=== PATIENT | female | born 1950 | race Caucasian/White ===

== ENCOUNTER → 2016-12-04 | Outpatient (CLI) | payer BC ==
[2016-12-04 20:12] LABS: Hemoglobin A1C 9.6 % (4.2-6.1)
== END | disposition home or self-care (01) ==
LOC: LABWHC1 11:10
PROVIDERS: ATTEND Psychiatry & Neurology Psychiatry
DX: E78.5 Hyperlipidemia, unspecified (principal); E03.9 Hypothyroidism, unspecified
CPT/HCPCS: 36415; 80061; 83036; 84439; 84443

== ENCOUNTER 2021-07-04 18:13 | Inpatient (IN) | payer MEDICARE ==
[2021-07-04 20:41] LABS: Basophils # (A) 0.1 k/uL (0-0.2); Basophils % (A) 1 %; Eosinophils # (A) 0.4 k/uL (0-0.7); Eosinophils % (A) 3 %; HCT 48.5 % (34.0-46.0); HGB 15.6 gm/dL (11.4-16.0); Lymphocytes # (A) 1.7 k/uL (1.0-4.8); Lymphocytes % (A) 13 %; MCHC 32.2 g/dL (31.0-37.0); Mean Platelet Volume 7.5; Monocytes # (A) 0.7 k/uL (0-1.0); Monocytes % (A) 6 %; Neutrophils # (A) 9.6 k/uL (1.3-7.7); Neutrophils % (A) 76 %; Platelet Count 334 k/uL (150-450); RBC 5.38 m/uL (3.80-5.40); RDW 14.8 % (11.5-15.5); WBC 12.6 k/uL (3.8-10.6)
[2021-07-04 20:54] LABS: Albumin 4.7 g/dL (3.5-5.0); Calcium 10.3 mg/dL (8.4-10.2); Potassium 4.1 mmol/L (3.5-5.1); Total Bilirubin 1.2 mg/dL (0.2-1.3)
--- NOTE | 2021-07-04 21:12 | XR ---
EXAMINATION TYPE: XR chest 2V DATE OF EXAM: 07/04/2021 8:48 PM COMPARISON:CT chest from same date 06/12/2021 TECHNIQUE: Frontal and lateral views of the chest. CLINICAL INDICATION:Female, 70 years old with history of difficulty breathing; FINDINGS: Lungs/Pleura: There is no evidence of pleural effusion, focal consolidation, or pneumothorax. Streak y atelectasis within the right midlung Pulmonary vascularity: Unremarkable. Heart/mediastinum: Cardiomediastinal silhouette is unremarkable. Musculoskeletal: No acute osseous pathology. IMPRESSION: No acute cardiopulmonary disease/process.
[2021-07-04 21:15] LABS: INR 0.9 (<1.2); Partial Thromboplastin Time 21.4 sec (22.0-30.0); Prothrombin Time 10.2 sec (9.0-12.0)
[2021-07-04] MEDS ORDERED: FAMOTIDINE 20 MG/2 ML VIAL IV STA (21:35)
[2021-07-04] MEDS ORDERED: METOCLOPRAMIDE 5 MG/ML 2 ML VIAL IVP STA (21:35)
[2021-07-04] MEDS ORDERED: SODIUM CHLORIDE 0.9% 1,000 ML IV STA ×2 (21:35→21:52)
[2021-07-04] MEDS ORDERED: diphenhydrAMINE 50 MG/ML 1 ML VIAL IVP STA (21:35)
--- NOTE | 2021-07-04 22:18 | CT ---
EXAMINATION TYPE: CT chest angio for PE CT DLP: 330.2 mGycm, Automated exposure control for dose reduction was used. DATE OF EXAM: 07/04/2021 10:04 PM COMPARISON: Chest radiograph from same day. CLINICAL INDICATION:Female, 70 years old with history of elevated d-dimer, concern for PE; chest pain TECHNIQUE/CONTRAST: CTA scan of the thorax is performed with IV Contrast, patient injected with 73cc mL of Isovue 370, pu lmonary embolism protocol. MIP images are created and reviewed. FINDINGS: Pulmonary Artery: Filling defect within the right main pulmonary artery with extension into the right lower lobe pulmonary arterial vasculature. Additional right upper lobe and left lower lobe pulmonary emboli are present. No evidence of right heart strain. The pulmonary artery is of normal size. Lungs/Pleura: No evidence of pneumothorax. Lower lobe collimation changes with central lucency remain s present appears smaller than 06/12/2021. There is small left pleural effusion. Groundglass opacity w ithin the left lung base is new from prior exam. Airway: Large airways are patent. Heart: Within normal limits for size. Vasculature: No evidence of aortic aneurysm. Mediastinum: No gross evidence of adenopathy. Musculoskeletal: No acute osseous abnormalities, multiple old left-sided rib fractures are present. Soft Tissues: Unremarkable. Lower neck: No significant findings. Upper Abdomen: Cholelithiasis within the gallbladder neck. Findings communicated to Dr. Robbin Friedman MD on 07/04/2021 10:[address] Lew Osborne. IMPRESSION: 1. Bilateral pulmonary emboli without evidence of right heart strain. 2. Right lower lobe consolidation with central lucency remains present and appears smaller compared t o 06/12/2021. Differential includes infectious/inflammatory etiologies with neoplastic process not ent irely excluded. Consider short-term follow-up imaging to ensure resolution in 4-6 weeks. 3. Decrease in size of right pleural effusion.
[2021-07-04] MEDS ORDERED: HEPARIN SODIUM 1,000 UN/ML (10ML VL) IV PRN (22:19)
[2021-07-04] MEDS ORDERED: HEPARIN SODIUM 1,000 UN/ML (10ML VL) IV ONE (22:19)
--- NOTE | 2021-07-04 22:22 | ED ---
General Adult HPI - General Chief complaint: Shortness of Breath Stated complaint: EFFIE Time Seen by Provider: 07/04/21 20:30 Source: patient, RN notes reviewed, old records reviewed Mode of arrival: ambulatory Limitations: no limitations - History of Present Illness Initial comments: Patient is a 70-year-old female with past medical history remarkable for diabetes, hypertension, thyroid disorder presents emergency Department complaining of multiweek history of worsening weakness, shortness of breath on exertion, fatigue. Patient states this is been ongoing for multiple weeks. She had Covid back at the end of March, and was improving but noticed that over the last 2 weeks she seems to be declining. Also endorses intermittent nausea and vomiting. Has not been checking her sugars at home. Denies any diarrhea. Denies any urinary complaints. His poor by mouth intake. His no other acute complaints at this time. Denies any chest pain, abdominal pain. Has no other pain at this time. No history of blood clots. Patient was evaluated when she was placed in a room. - Related Data Home Medications Medication Instructions Recorded Confirmed FLUoxetine HCL [PROzac] 20 mg PO DAILY 03/15/16 07/04/21 Levothyroxine Sodium [Synthroid] 112 mcg PO DAILY 03/15/16 07/04/21 Lisinopril-Hctz 10-12.5 mg 1 tab PO DAILY 03/15/16 07/04/21 [Zestoretic 10-12.5] Albuterol Sulfate [Albuterol 2 puff PO RT-Q6H PRN 07/04/21 07/04/21 Sulfate Hfa] Amoxicillin/Potassium Clav 1 tab PO BID 07/04/21 07/04/21 [Augmentin 875-125 Tablet] Dapagliflozin Propanediol [Farxiga] 10 mg PO DAILY 07/04/21 07/04/21 Dulaglutide [Trulicity] 3 mg SQ TH 07/04/21 07/04/21 allopurinoL [Zyloprim] 100 mg PO DAILY 07/04/21 07/04/21 predniSONE See Taper PO DIRECTED 07/04/21 07/04/21 Allergies Allergy/AdvReac Type Severity Reaction Status Date / Time latex Allergy Rash/Hives Verified 07/04/21 23:07 Review of Systems ROS Statement: Those systems with pertinent positive or pertinent negative responses have been documented in the HPI. Review of Systems: CONST: Denies fever EYES: Denies blurry vision ENT: Denies nasal congestion C/V: Denies Chest pain RESP: Endorses shortness of breath GI: Denies abdominal pain : Denies dysuria SKIN: Denies rash. MSK: Denies joint pain. NEURO: Endorses generalized fatigue ROS Other: All systems not noted in ROS Statement are negative. Past Medical History Past Medical History: Diabetes Mellitus, GERD/Reflux, Hyperlipidemia, Hypertension, Pneumonia, Skin Disorder, Sleep Apnea/CPAP/BIPAP, Thyroid Disorder Additional Past Medical History / Comment(s): NO CPAP. ROSACEA. History of Any Multi-Drug Resistant Organisms: None Reported Past Surgical History: Section, Hysterectomy Past Anesthesia/Blood Transfusion Reactions: Motion Sickness Past Psychological History: Depression Smoking Status: Never smoker Past Alcohol Use History: None Reported Past Drug Use History: None Reported General Exam - General Exam Comments Initial Comments: General: Appears in no acute distress. HEAD: Normal with no signs of head trauma. EYES: PERRLA, EOMI, conjunctiva normal, no discharge. ENT: Hearing grossly intact, normal oropharynx. Dry mucous membranes RESPIRATORY: Clear breath sounds bilaterally. No wheezes, rales, or rhonchi. C/V: Regular rate and rhythm. S1 and S2 auscultated, no edema, peripheral pulses 2+ and intact throughout ABD: Abd is soft, nontender, nondistended EXT: Normal range of motion, no obvious deformity SKIN: No rashes or lesions observed on exposed skin. NEURO: Alert and oriented 4. No focal sensory strength deficits. NIH is 0. GCS is 15. Limitations: no limitations Course Vital Signs 07/04/21 07/04/21 07/04/21 19:33 21:06 22:20 Temperature 97.6 F Pulse Rate 80 69 76 Respiratory 80 H 18 18 Rate Blood Pressure 111/61 140/69 165/62 O2 Sat by Pulse 99 99 96 Oximetry 07/05/21 00:11 Temperature Pulse Rate 67 Respiratory 18 Rate Blood Pressure 139/48 O2 Sat by Pulse 98 Oximetry Procedures - [place] Protocol (Time Out) Nurse: Nathan Parkinson Medical Decision Making - Medical Decision Making Based on patient's presentation and physical exam, I'm concerned for possible PE versus cardiopulmonary etiology for her current symptoms. Cannot rule out infection either. We'll obtain a cardiac workup and basic labs. She'll be started on 1 L fluid bolus as well as symptomatic treatment with a GI cocktail. She was in agreement this plan. EKG showed no signs of acute ischemia. Chest x-ray showed no acute cardiopulmonary process. Laboratory studies are remarkable for a elevated d- dimer 4.77, mild leukocytosis of 12.6, hyponatremia and hypochloremia 129 and 86. Patient also has an anion gap metabolic acidosis likely secondary to DKA with a carbon dioxide of 17, gap of 26, glucose of 470, as well as positive acetones and 2+ ketones and 4+ glucose in the urine. Troponin is negative. Covid is negative. Due to patient's elevated d-dimer, I would like to obtain a CT angiogram to rule out PE. She was in agreement this plan. CT angiogram didn't reveal improvement in a right lower lobe consolidation. Patient has bilateral pul monary embolisms which appear to be subsegmental and segmental. After the patient results of her laboratory studies and imaging. Like to start her on a heparin drip for her pulmonary embolism. Pulmonology as well as vascular surgery will be consulted. She was in agreement this plan. Echo was ordered. Cardiology was also consulted. Due to the patient's DKA, DKA protocol was started. She was placed on an insulin drip. She received a total of 2 fluid boluses here in the department as well is started on an insulin drip and maintenance fluids. She was in agreement this plan. I spoke with the admitting physician, Dr. Resendez was in agreement this plan. I also spoke with the order tracer on-call was consulted, Dr. Smith who was in agreement with this plan. He requested the vascular surgery consult which was placed. Patient will be admitted to the ICU pending availability of the bed. Patient was in agreement this plan. Patient was therefore admitted and serous condition. Echo is pending. Vital signs remained within normal limits and stable throughout her stay in the department. I frequently reevaluated the patient throughout her stay in the department. - Lab Data Result diagrams: 07/04/21 20:17 07/04/21 20:17 Lab Results 07/04/21 07/04/21 07/04/21 Range/Units 20:17 20:17 20:17 WBC 12.6 H (3.8-10.6) k/uL RBC 5.38 (3.80-5.40) m/uL Hgb 15.6 (11.4-16.0) gm/dL Hct 48.5 H (34.0-46.0) % MCV 90.0 (80.0-100.0) fL MCH 29.0 (25.0-35.0) pg MCHC 32.2 (31.0-37.0) g/dL RDW 14.8 (11.5-15.5) % Plt Count 334 (150-450) k/uL MPV 7.5 Neutrophils % 76 % Lymphocytes % 13 % Monocytes % 6 % Eosinophils % 3 % Basophils % 1 % Neutrophils # 9.6 H (1.3-7.7) k/uL Lymphocytes # 1.7 (1.0-4.8) k/uL Monocytes # 0.7 (0-1.0) k/uL Eosinophils # 0.4 (0-0.7) k/uL Basophils # 0.1 (0-0.2) k/uL PT 10.2 (9.0-12.0) sec INR 0.9 (<1.2) APTT 21.4 L (22.0-30.0) sec D-Dimer 4.77 H (<0.60) mg/L FEU Sodium 129 L (137-145) mmol/L Potassium 4.1 (3.5-5.1) mmol/L Chloride 86 L (98-107) mmol/L Carbon Dioxide 17 L (22-30) mmol/L Anion Gap 26 mmol/L BUN 34 H (7-17) mg/dL Creatinine 1.04 (0.52-1.04) mg/dL Est GFR (CKD-EPI)AfAm 63 (>60 ml/min/1.73 sqM) Est GFR (CKD-EPI)NonAf 55 (>60 ml/min/1.73 sqM) Glucose 470 H (74-99) mg/dL Calcium 10.3 H (8.4-10.2) mg/dL Total Bilirubin 1.2 (0.2-1.3) mg/dL AST 23 (14-36) U/L ALT 31 (4-34) U/L Alkaline Phosphatase 123 (38-126) U/L Troponin I (0.000-0.034) ng/mL Total Protein 8.0 (6.3-8.2) g/dL Albumin 4.7 (3.5-5.0) g/dL Urine Color Urine Appearance (Clear) Urine pH (5.0-8.0) Ur Specific [place] (1.001-1.035) Urine Protein (Negative) Urine Glucose (UA) (Negative) Urine Ketones (Negative) Urine Blood (Negative) Urine Nitrite (Negative) Urine Bilirubin (Negative) Urine Urobilinogen (<2.0) mg/dL Ur Leukocyte Esterase (Negative) Urine RBC (0-5) /hpf Urine WBC (0-5) /hpf Ur Squamous Epith Cells (0-4) /hpf Urine Mucus (None) /hpf Acetone, Qual (Negative) Coronavirus (PCR) (Not Detectd) 07/04/21 07/04/21 07/04/21 Range/Units 20:17 20:37 22:20 WBC (3.8-10.6) k/uL RBC (3.80-5.40) m/uL Hgb (11.4-16.0) gm/dL Hct (34.0-46.0) % MCV (80.0-100.0) fL MCH (25.0-35.0) pg MCHC (31.0-37.0) g/dL RDW (11.5-15.5) % Plt Count (150-450) k/uL MPV Neutrophils % % Lymphocytes % % Monocytes % % Eosinophils % % Basophils % % Neutrophils # (1.3-7.7) k/uL Lymphocytes # (1.0-4.8) k/uL Monocytes # (0-1.0) k/uL Eosinophils # (0-0.7) k/uL Basophils # (0-0.2) k/uL PT (9.0-12.0) sec INR (<1.2) APTT (22.0-30.0) sec D-Dimer (<0.60) mg/L FEU Sodium (137-145) mmol/L Potassium (3.5-5.1) mmol/L Chloride (98-107) mmol/L Carbon Dioxide (22-30) mmol/L Anion Gap mmol/L BUN (7-17) mg/dL Creatinine (0.52-1.04) mg/dL Est GFR (CKD-EPI)AfAm (>60 ml/min/1.73 sqM) Est GFR (CKD-EPI)NonAf (>60 ml/min/1.73 sqM) Glucose (74-99) mg/dL Calcium (8.4-10.2) mg/dL Total Bilirubin (0.2-1.3) mg/dL AST (14-36) U/L ALT (4-34) U/L Alkaline Phosphatase (38-126) U/L Troponin I <0.012 (0.000-0.034) ng/mL Total Protein (6.3-8.2) g/dL Albumin (3.5-5.0) g/dL Urine Color Light Yellow Urine Appearance Clear (Clear) Urine pH 5.0 (5.0-8.0) Ur Specific [place] 1.034 (1.001-1.035) Urine Protein Negative (Negative) Urine Glucose (UA) 4+ H (Negative) Urine Ketones 2+ H (Negative) Urine Blood Negative (Negative) Urine Nitrite Negative (Negative) Urine Bilirubin Negative (Negative) Urine Urobilinogen <2.0 (<2.0) mg/dL Ur Leukocyte Esterase Small H (Negative) Urine RBC 2 (0-5) /hpf Urine WBC 14 H (0-5) /hpf Ur Squamous Epith Cells 2 (0-4) /hpf Urine Mucus Rare H (None) /hpf Acetone, Qual Positive (Negative) Coronavirus (PCR) (Not Detectd) 07/04/21 Range/Units 22:20 WBC (3.8-10.6) k/uL RBC (3.80-5.40) m/uL Hgb (11.4-16.0) gm/dL Hct (34.0-46.0) % MCV (80.0-100.0) fL MCH (25.0-35.0) pg MCHC (31.0-37.0) g/dL RDW (11.5-15.5) % Plt Count (150-450) k/uL MPV Neutrophils % % Lymphocytes % % Monocytes % % Eosinophils % % Basophils % % Neutrophils # (1.3-7.7) k/uL Lymphocytes # (1.0-4.8) k/uL Monocytes # (0-1.0) k/uL Eosinophils # (0-0.7) k/uL Basophils # (0-0.2) k/uL PT (9.0-12.0) sec INR (<1.2) APTT (22.0-30.0) sec D-Dimer (<0.60) mg/L FEU Sodium (137-145) mmol/L Potassium (3.5-5.1) mmol/L Chloride (98-107) mmol/L Carbon Dioxide (22-30) mmol/L Anion Gap mmol/L BUN (7-17) mg/dL Creatinine (0.52-1.04) mg/dL Est GFR (CKD-EPI)AfAm (>60 ml/min/1.73 sqM) Est GFR (CKD-EPI)NonAf (>60 ml/min/1.73 sqM) Glucose (74-99) mg/dL Calcium (8.4-10.2) mg/dL Total Bilirubin (0.2-1.3) mg/dL AST (14-36) U/L ALT (4-34) U/L Alkaline Phosphatase (38-126) U/L Troponin I (0.000-0.034) ng/mL Total Protein (6.3-8.2) g/dL Albumin (3.5-5.0) g/dL Urine Color Urine Appearance (Clear) Urine pH (5.0-8.0) Ur Specific [place] (1.001-1.035) Urine Protein (Negative) Urine Glucose (UA) (Negative) Urine Ketones (Negative) Urine Blood (Negative) Urine Nitrite (Negative) Urine Bilirubin (Negative) Urine Urobilinogen (<2.0) mg/dL Ur Leukocyte Esterase (Negative) Urine RBC (0-5) /hpf Urine WBC (0-5) /hpf Ur Squamous Epith Cells (0-4) /hpf Urine Mucus (None) /hpf Acetone, Qual (Negative) Coronavirus (PCR) Not Detected (Not Detectd) - EKG Data -: EKG Interpreted by Me EKG Comments: 12-lead Electrocardiogram Interpretation Note EKG was reviewed and interpreted by myself. 12-lead ECG performed at 2001 is interpreted by me as revealing normal sinus rhythm at a rate of 77 beats per minute. [place] is normal. MD interval is approximately 160 ms, QRS is 96 ms, QTc is 400 ms. There were no ST or T wave abnormalities to suggest myocardial ischemia or injury. R wave progression across the precordium was satisfactory. By my interpretation this EKG is non-diagnostic for acute ischemia. Critical Care Time Critical Care Time: Yes Total Critical Care Time: 35 Critical Care Time: Upon my evaluation, this patient had a high probability of imminent or life- threatening deterioration due to PE bilateral, DKA, which required my direct attention, intervention, and personal management. I have personally provided 35 minutes of critical care time exclusive of time spent on separately billable procedures. Time includes review of laboratory data, radiology results, discussion with consultants, and monitoring for potential decompensation. Interventions were performed as documented in my note. Disposition Clinical Impression: Bilateral pulmonary embolism, DKA (diabetic ketoacidosis), Metabolic acidosis, increased anion gap, Hyperglycemia, Dehydration Disposition: ADMITTED IP TO THIS HOSP Condition: Serious
[2021-07-04 22:29] LABS: Appearance,Urine Clear (Clear); Bilirubin,Urine Negative (Negative); Blood,Urine Negative (Negative); Color,Urine Light Yellow; Glucose,Urine (UA) 4+ (Negative); Leukocyte Esterase,Urine Small (Negative); Mucus,Urine Rare /hpf; Nitrite,Urine Negative (Negative); Protein,Urine Negative (Negative); RBC,Urine 2 /hpf (0-5); Specific Gravity,Urine 1.034 (1.001-1.035); Squamous Epithelial Cell,Urine 2 /hpf (0-4); Urobilinogen,Urine <2.0 mg/dL (<2.0); WBC,Urine 14 /hpf (0-5)
[2021-07-04 22:31] LABS: Ketones,Urine 2+ (Negative)
[2021-07-04] MEDS ORDERED: ONDANSETRON 4 MG/2 ML VIAL IVP PRN (22:34)
[2021-07-04] MEDS ORDERED: NALOXONE 0.4 MG/ML 1 ML VIAL IV PRN (22:34)
[2021-07-04] MEDS: HEPARIN SOD,PORK IN 0.45% NACL 25,000 UNIT in 0.45% NACL 1 250ML.BAG IV SCH (23:07)
[2021-07-04] MEDS ORDERED: INSULIN REGULAR 100 UNIT in SODIUM CHLORIDE 0.9% 100 ML IV SCH (23:15)
[2021-07-04] MEDS ORDERED: SODIUM CHLORIDE 0.9% 1,000 ML IV SCH (23:15)
[2021-07-04 23:34] LABS: Glucose,Whole Blood 323 mg/dL (75-99)
[2021-07-05 00:43] LABS: Glucose,Whole Blood 200 mg/dL (75-99)
[2021-07-05] MEDS: D5-0.45% NACL WITH KCL 20MEQ/L 1,000 ML IV SCH ×3 (01:12→16:12)
[2021-07-05 01:43] LABS: Glucose,Whole Blood 116 mg/dL (75-99)
[2021-07-05 01:49] LABS: Phosphorus 1.8 mg/dL (2.5-4.5); Potassium 3.2 mmol/L (3.5-5.1)
[2021-07-05] MEDS ORDERED: Potassium Replacement Protocol 1 EACH MISC MISCELLANE PRN (02:44)
[2021-07-05] MEDS: POTASSIUM CHLORIDE ER 20 MEQ TAB.ER PO SCH ×2 (02:55→03:58)
[2021-07-05 02:58] LABS: Glucose,Whole Blood 94 mg/dL (75-99)
[2021-07-05 04:01] LABS: Glucose,Whole Blood 114 mg/dL (75-99)
[2021-07-05 04:47] LABS: Basophils # (A) 0.1 k/uL (0-0.2); Basophils % (A) 1 %; Eosinophils # (A) 0.7 k/uL (0-0.7); Eosinophils % (A) 6 %; HCT 42.8 % (34.0-46.0); HGB 13.7 gm/dL (11.4-16.0); Lymphocytes % (A) 19 %; MCH 28.3 pg (25.0-35.0); MCHC 32.1 g/dL (31.0-37.0); Mean Platelet Volume 7.1; Monocytes # (A) 0.7 k/uL (0-1.0); Monocytes % (A) 7 %; Neutrophils # (A) 7.2 k/uL (1.3-7.7); Neutrophils % (A) 67 %; Platelet Count 272 k/uL (150-450); RBC 4.86 m/uL (3.80-5.40); RDW 15.1 % (11.5-15.5); WBC 10.8 k/uL (3.8-10.6)
[2021-07-05 05:14] LABS: Glucose,Whole Blood 114 mg/dL (75-99)
[2021-07-05 05:32] LABS: African American GFR (CKD) >90 (>60 ml/min/1.73 sqM); Anion Gap 14 mmol/L; Blood Urea Nitrogen 24 mg/dL (7-17); Calcium 8.5 mg/dL (8.4-10.2); Carbon Dioxide 19 mmol/L (22-30); Chloride 101 mmol/L (98-107); Glucose 119 mg/dL (74-99); Non-African American GFR(CKD) 84 (>60 ml/min/1.73 sqM); Potassium 3.4 mmol/L (3.5-5.1); Sodium 134 mmol/L (137-145)
[2021-07-05 06:49] LABS: Glucose,Whole Blood 131 mg/dL (75-99)
[2021-07-05 08:01] LABS: Glucose,Whole Blood 179 mg/dL (75-99)
--- NOTE | 2021-07-05 08:13 | P.CRDCN ---
History of Present Illness History of present illness: HISTORY OF PRESENTING ILLNESS Patient is pleasant 70-year-old female with history of diabetes hypertension hypothyroidism and COVID-19 infection March 2021 who presents secondary to multiple complaints including weakness and fatigue over last 2 months since February the infection, shortness of breath. These symptoms appear to been going on for 2 months. She states with her Covid infection she did have some shortness breath however felt somewhat better for a week and then started fe eling worse. This has been ongoing for some time and she was recently started on steroids and more recently she had some nausea and came to the hospital. Blood work showed DKA with elevated glucose level which she believes is related to the steroids. White blood cell count 12.6, hemoglobin 15.6, d-dimer 4.7, sodium 129, bicarb 17, BUN 34, creatinine 1.0, glucose 470, calcium 10.3, troponin 0.012. Lactic acid 1.5. Blood pressures have remained stable area she denies any lightheadedness or dizziness. She has had decreased appetite and has not been eating much. EKG shows normal sinus rhythm, normal axis, no significant ST or T-wave abnormalities. CTA shows bilateral pulmonary emboli and right lower lobe consolidation with central lucency which was identified from prior CT from May. REVIEW OF SYSTEMS At the time of my exam: CONSTITUTIONAL: Denies fever or chills. CARDIOVASCULAR: Denies chest pain, +shortness of breath, no orthopnea, PND or palpitations. RESPIRATORY: Denies cough. GASTROINTESTINAL: Denies abdominal pain, diarrhea, constipation, +nausea, +vomiting. MUSCULOSKELETAL: Denies myalgias. NEUROLOGIC: Denies numbness, tingling or weakness. ENDOCRINE:+fatigue, +weight loss, + polydipsia +polyurina. GENITOURINARY: Denies burning, hematuria or urgency with micturation. HEMATOLOGIC: Denies history of anemia or bleeding. PHYSICAL EXAMINATION Vital signs reviewed. CONSTITUTIONAL: No apparent distress. HEENT: Head is normocephalic. Pupils are equal, round. Sclerae anicteric. Mucous membranes of the mouth are moist. No JVD. No carotid bruit. CHEST EXAMINATION: Lungs are clear to auscultation. No chest wall tenderness is noted on palpation or with deep breathing. HEART EXAMINATION: Regular rate and rhythm. S1, S2 heard. No murmurs, gallops or rub. ABDOMEN: Soft, nontender. Positive bowel sounds. EXTREMITIES: 2+ peripheral pulses, no lower extremity edema and no calf tenderness. NEUROLOGIC EXAMINATION: Patient is awake, alert and oriented x3. ASSESSMENT 1. Acute on chronic respiratory failure likely related to pulmonary emboli 2. Bilateral pulmonary emboli, appears low risk PE however check proBNP, echo 3. Right lower lobe consolidation, differential infectious versus cancer versus other 4. Recent COVID-19 infection March 2021 5. Recent weight loss, fatigue unclear related to pulmonary embolism 6. Diabetes mellitus type 2 PLAN Patient with bilateral pulmonary emboli however blood pressures remain stable, troponin normal and appears low risk. We will check proBNP as well as 2-D echo to evaluate for any right ventricular strain. If lower risk no indication for EKOS. Bilateral pulmonary emboli explain shortness breath however unclear etiology of fatigue and weight loss. Internal medicine/ pulmonology recommendations appreciated. Past Medical History Past Medical History: Diabetes Mellitus, GERD/Reflux, Hyperlipidemia, Hypertension, Pneumonia, Skin Disorder, Sleep Apnea/CPAP/BIPAP, Thyroid Disorder Additional Past Medical History / Comment(s): NO CPAP. ROSACEA. History of Any Multi-Drug Resistant Organisms: None Reported Past Surgical History: Section, Hysterectomy Additional Past Surgical History / Comment(s): Eye surgery Past Anesthesia/Blood Transfusion Reactions: Motion Sickness Past Psychological History: Depression Smoking Status: Never smoker Past Alcohol Use History: None Reported Past Drug Use History: None Reported Medications and Allergies Home Medications Medication Instructions Recorded Confirmed Type FLUoxetine HCL [PROzac] 20 mg PO DAILY 03/15/16 07/04/21 History Levothyroxine Sodium [Synthroid] 112 mcg PO DAILY 03/15/16 07/04/21 History Lisinopril-Hctz 10-12.5 mg 1 tab PO DAILY 03/15/16 07/04/21 History [Zestoretic 10-12.5] Albuterol Sulfate [Albuterol 2 puff PO RT-Q6H PRN 07/04/21 07/04/21 History Sulfate Hfa] Amoxicillin/Potassium Clav 1 tab PO BID 07/04/21 07/04/21 History [Augmentin 875-125 Tablet] Dapagliflozin Propanediol [Farxiga] 10 mg PO DAILY 07/04/21 07/04/21 History Dulaglutide [Trulicity] 3 mg SQ TH 07/04/21 07/04/21 History allopurinoL [Zyloprim] 100 mg PO DAILY 07/04/21 07/04/21 History predniSONE See Taper PO DIRECTED 07/04/21 07/04/21 History Allergies Allergy/AdvReac Type Severity Reaction Status Date / Time latex Allergy Rash/Hives Verified 07/04/21 23:07 Physical Exam Vitals: Vital Signs Temp Pulse Resp BP Pulse Ox 07/05/21 07:00 61 14 129/67 96 07/05/21 06:00 60 10 L 130/54 96 07/05/21 05:00 63 15 138/60 94 L 07/05/21 04:00 87 17 133/65 97 07/05/21 03:00 132/57 07/05/21 02:00 66 9 L 135/62 96 07/05/21 01:00 97.3 F L 65 148/74 97 07/05/21 00:11 67 18 139/48 98 07/05/21 00:00 67 18 98 07/04/21 23:00 72 99 07/04/21 22:20 76 18 165/62 96 07/04/21 21:06 69 18 140/69 99 07/04/21 21:00 82 21 07/04/21 20:21 68 21 07/04/21 19:33 97.6 F 80 80 H 111/61 99 Intake and Output 07/04/21 07/05/21 07/05/21 22:59 06:59 14:59 Intake Total 971.985 271.635 Output Total 0 0 Balance 971.985 271.635 Intake: IV 950 150 D5-0.45% NaCl with KCl 750 150 20Meq/l 1,000 ml @ 150 mls/hr IV .[id number] [facility] Rx# :[id number] Sodium Chloride 0.9% 1, 200 000 ml @ 200 mls/hr IV . Q5H [facility] Rx#:[id number] Intake, IV Titration 21.985 121.635 Amount Heparin Sod,Pork in 0.45% 121.635 NaCl 25,000 unit In 0.45 % NaCl 1 250ml.bag @ 18 UNITS/KG/HR 15.268 mls/hr IV .[id number] [facility] Rx#: [id number] Insulin Regular 100 unit 21.985 In Sodium Chloride 0.9% 100 ml @ 0.1 UNITS/KG/HR 8.567 mls/hr IV .[id number] [facility] Rx#:[id number] Output: Urine 0 0 Other: # Voids 1 Weight 84.822 kg 84.822 kg Results 07/05/21 04:05 07/05/21 04:05 Cardiac Enzymes 07/04/21 07/04/21 Range/Units 20:17 20:17 AST 23 (14-36) U/L Troponin I <0.012 (0.000-0.034) ng/mL Coagulation 07/04/21 07/05/21 Range/Units 20:17 05:56 PT 10.2 (9.0-12.0) sec APTT 21.4 L >200.0 H* (22.0-30.0) sec CBC 07/04/21 07/05/21 Range/Units 20:17 04:05 WBC 12.6 H 10.8 H (3.8-10.6) k/uL RBC 5.38 4.86 (3.80-5.40) m/uL Hgb 15.6 13.7 (11.4-16.0) gm/dL Hct 48.5 H 42.8 (34.0-46.0) % Plt Count 334 272 (150-450) k/uL Comprehensive Metabolic Panel 07/04/21 07/05/21 07/05/21 Range/Units 20:17 01:33 04:05 Sodium 129 L 134 L 134 L (137-145) mmol/L Potassium 4.1 3.2 L 3.4 L (3.5-5.1) mmol/L Chloride 86 L 101 101 (98-107) mmol/L Carbon Dioxide 17 L 20 L 19 L (22-30) mmol/L BUN 34 H 27 H 24 H (7-17) mg/dL Creatinine 1.04 0.79 0.73 (0.52-1.04) mg/dL Glucose 470 H 101 H 119 H (74-99) mg/dL Calcium 10.3 H 8.5 (8.4-10.2) mg/dL AST 23 (14-36) U/L ALT 31 (4-34) U/L Alkaline Phosphatase 123 (38-126) U/L Total Protein 8.0 (6.3-8.2) g/dL Albumin 4.7 (3.5-5.0) g/dL Current Medications Generic Name Dose Route Start Last Admin Trade Name Freq PRN Reason Stop Dose Admin Heparin Sodium (Porcine) 0 unit 07/04/21 22:19 Heparin Sodium 1,000 Un/Ml (10ml Vl) IV PER PROTOCOL PRN Low PTT Protocol Heparin Sodium/Sodium Chloride 250 mls @ 15.268 mls/hr 07/04/21 22:30 07/05/21 08:03 25,000 unit/ Sodium Chloride IV 15 units/kg/hr .[id number] [facility] 12.723 mls/hr Titration Protocol 18 UNITS/KG/HR Insulin Human Regular 100 unit 101 mls @ 8.567 mls/hr 07/04/21 23:15 07/05/21 05:15 / Sodium Chloride IV 0.01 units/kg/hr .[id number] [facility] 1.07 mls/hr Titration Protocol 0.1 UNITS/KG/HR Potassium Chloride/Dextrose/Sod Cl 1,000 mls @ 150 mls/hr 07/05/21 01:00 03/16 01:12 D5%-1/2ns-Kcl 20 Meq/L Iv Solution IV 150 mls/hr .Q6H40M [facility] Administration Miscellaneous Information 1 each 07/05/21 02:44 Potassium Replacement Protocol 1 Each Misc MISCELLANE DAILY PRN Per Protocol Protocol Naloxone HCl 0.2 mg 07/04/21 22:34 Naloxone 0.4 Mg/Ml 1 Ml Vial IV Q2M PRN Opioid Reversal Ondansetron HCl 4 mg 07/04/21 22:34 Ondansetron 4 Mg/2 Ml Vial IVP Q8HR PRN Nausea And Vomiting Intake and Output 07/04/21 07/05/21 07/05/21 22:59 06:59 14:59 Intake Total 971.985 271.635 Output Total 0 0 Balance 971.985 271.635 Intake: IV 950 150 D5-0.45% NaCl with KCl 750 150 20Meq/l 1,000 ml @ 150 mls/hr IV .Q6H40M [facility] Rx# :[id number] Sodium Chloride 0.9% 1, 200 000 ml @ 200 mls/hr IV . Q5H [facility] Rx#:[id number] Intake, IV Titration 21.985 121.635 Amount Heparin Sod,Pork in 0.45% 121.635 NaCl 25,000 unit In 0.45 % NaCl 1 250ml.bag @ 18 UNITS/KG/HR 15.268 mls/hr IV .[id number] [facility] Rx#: [id number] Insulin Regular 100 unit 21.985 In Sodium Chloride 0.9% 100 ml @ 0.1 UNITS/KG/HR 8.567 mls/hr IV .[id number] [facility] Rx#:[id number] Output: Urine 0 0 Other: # Voids 1 Weight 84.822 kg 84.822 kg 07/05/21 04:05 07/05/21 04:05
[2021-07-05 09:26] LABS: Glucose,Whole Blood 193 mg/dL (75-99)
[2021-07-05 09:30] LABS: African American GFR (CKD) >90 (>60 ml/min/1.73 sqM); Anion Gap 10 mmol/L; Carbon Dioxide 18 mmol/L (22-30); Chloride 105 mmol/L (98-107); Glucose 155 mg/dL (74-99); Non-African American GFR(CKD) 90 (>60 ml/min/1.73 sqM); Phosphorus 2.8 mg/dL (2.5-4.5); Sodium 133 mmol/L (137-145)
[2021-07-05 10:13] LABS: Glucose,Whole Blood 165 mg/dL (75-99)
--- NOTE | 2021-07-05 10:37 | US ---
EXAMINATION TYPE: US venous doppler duplex LE DATE OF EXAM: 07/05/2021 8:13 AM COMPARISON: NONE CLINICAL HISTORY: 70-year-old female bilateral PE's, legs feel tired SIDE PERFORMED: Bilateral TECHNIQUE: The lower extremity deep venous system is examined utilizing real time linear array sonog hair with graded compression, doppler sonography and color-flow sonography. FINDINGS: VESSELS IMAGED: Common Femoral Vein Deep Femoral Vein Greater Saphenous Vein * Femoral Vein Popliteal Vein Small Saphenous Vein * Proximal Calf Veins (* superficial vessels) Right Leg: internal echoes that are not compressible with no color flow within popiteal vein Left Leg: Negative for DVT IMPRESSION: 1. Exam positive for acute, occlusive DVT of the right lower extremity involving the popliteal vein. 2. No evidence for DVT within the left lower extremity imaged from the groin to the upper calf.
[2021-07-05] MEDS: LEVOTHYROXINE 112 MCG TAB PO SCH (10:58)
[2021-07-05] MEDS: FLUoxetine HCL 20 MG CAP PO SCH (10:58)
--- NOTE | 2021-07-05 11:02 | ECHOF ---
Referral Reason:bilateral PE, eval for right heart strain MEASUREMENTS -------- HEIGHT: 162.6 cm WEIGHT: 84.8 kg BP: RVIDd: 2.4 cm (< 3.3) IVSd: 1.2 cm (0.6 - 1.1) LVIDd: 3.8 cm (3.9 - 5.3) LVPWd: 1.4 cm (0.6 - 1.1) IVSs: 1.8 cm LVIDs: 2.2 cm LVPWs: 2.1 cm Ao Diam: 3.2 cm (2.0 - 3.7) AV Cusp: 1.9 cm (1.5 - 2.6) LA Diam: 3.6 cm (2.7 - 3.8) MV EXCURSION: 12.495 mm (> 18.000) MV EF SLOPE: 65 mm/s (70 - 150) EPSS: 0.5 cm MV E Bronson: 0.53 m/s MV DecT: 261 ms MV A Bronson: 0.50 m/s MV E/A Ratio: 1.06 RAP: 5.00 mmHg RVSP: 18.61 mmHg TAPSE: 23.43 mm FINDINGS -------- This was a technically adequate study. The left ventricular size is normal. There is mild concentric left ventricular hypertrophy. Overa ll left ventricular systolic function is low-normal with, an EF between 50 - 55 %. The right ventricle is normal in size. The right ventricular systolic function is normal. The left atrial size is normal. The right atrial size is normal. The aortic valve is trileaflet and appears structurally normal. The mitral valve is normal. Mild mitral annular calcification present. There is trace mitral regu rgitation. The tricuspid valve appears structurally normal. Trace tricuspid regurgitation present. Right amarjit tricular systolic pressure is normal at < 35 mmHg. There is no pulmonic regurgitation present. The aortic root size is normal. Normal inferior vena cava with normal inspiratory collapse consistent with estimated right atrial pre ssure of 5 mmHg. There is a trivial pericardial effusion present. CONCLUSIONS -------- 1. The left ventricular size is normal. 2. There is mild concentric left ventricular hypertrophy. 3. Overall left ventricular systolic function is low-normal with, an EF between 50 - 55 %. 4. The right ventricle is normal in size. 5. The right ventricular systolic function is normal. 6. Mild mitral annular calcification present. 7. There is trace mitral regurgitation. 8. Trace tricuspid regurgitation present. 9. There is a trivial pericardial effusion present. BUSINESS DEVELOPMENT DIRECTOR: Jacinta Mejia RDCS
[2021-07-05] MEDS: INSULIN DETEMIR (LEVEMIR) 100 UNIT/ML SYR SQ SCH (11:04)
[2021-07-05 11:05] LABS: Glucose,Whole Blood 183 mg/dL (75-99)
[2021-07-05 11:18] VITALS: BMI 32.1
--- NOTE | 2021-07-05 11:48 | P.CNPUL ---
History of Present Illness Consult date: 07/05/21 Requesting physician: Osman Parisi Reason for consult: pulmonary embolism Chief complaint: Weakness fatigue and shortness of breath. History of present illness: This is a 70-year-old female with known history of hypertension, diabetes, hypothyroidism, and she was diagnosed with COVID-19 infection/pneumonia in March of 2021. Patient is vaccinated, but not boosted. She received 2 shots but by the time she was about to receive her third shot, patient came down with COVID-19 pneumonia. This was around 2020. Since then, the patient has not been feeling well, has been feeling short of breath, weak, fatigued, and never back to her baseline. She was recently seen by her primary care physician, and he recommended antibiotics and a course of prednisone burst and taper. However her condition continued to deteriorate, seen in the ER last night, CT angiogram of the chest showed bilateral pulmonary embolism. Quite extensive but no right ventricular strain, patient was also noted to be in DKA with elevated blood sugar of 470 and an anion gap of 24. Patient was started on heparin, started on the DKA protocol, admitted to the ICU, and I was asked to see her on consultation. Patient never had any previous history of thromboembolic disease. She has no history of underlying malignancy. She does have family history of pulmonary embolism, father had pulmonary embolism at a relatively young age, exact etiology was not clear. Patient believes that her main trigger factor for thromboembolic disease was the fact she had COVID-19 pneumonia in March, and she has not been feeling the same since then. Review of Systems CONSTITUTIONAL: Weakness fatigue CARDIOVASCULAR: No chest pain, no orthopnea, no PND. RESPIRATORY: Shortness of breath and right-sided pleuritic chest pain as noted in HPI. Seems to be relatively chronic since March of 2021. GASTROINTESTINAL: Denies nausea vomiting abdominal pain. MUSCULOSKELETAL: Negative. NEUROLOGIC: Negative. ENDOCRINE:+ Fatigue with weight loss, polyuria, polydipsia. GENITOURINARY: Negative. HEMATOLOGIC: Negative. Past Medical History Past Medical History: Diabetes Mellitus, GERD/Reflux, Hyperlipidemia, Hypertension, Pneumonia, Skin Disorder, Sleep Apnea/CPAP/BIPAP, Thyroid Disorder Additional Past Medical History / Comment(s): NO CPAP. ROSACEA. History of Any Multi-Drug Resistant Organisms: None Reported Past Surgical History: Section, Hysterectomy Additional Past Surgical History / Comment(s): Eye surgery Past Anesthesia/Blood Transfusion Reactions: Motion Sickness Past Psychological History: Depression Smoking Status: Never smoker Past Alcohol Use History: None Reported Past Drug Use History: None Reported Medications and Allergies Home Medications Medication Instructions Recorded Confirmed Type FLUoxetine HCL [PROzac] 20 mg PO DAILY 03/15/16 07/04/21 History Levothyroxine Sodium [Synthroid] 112 mcg PO DAILY 03/15/16 07/04/21 History Lisinopril-Hctz 10-12.5 mg 1 tab PO DAILY 03/15/16 07/04/21 History [Zestoretic 10-12.5] Albuterol Sulfate [Albuterol 2 puff PO RT-Q6H PRN 07/04/21 07/04/21 History Sulfate Hfa] Amoxicillin/Potassium Clav 1 tab PO BID 07/04/21 07/04/21 History [Augmentin 875-125 Tablet] Dapagliflozin Propanediol [Farxiga] 10 mg PO DAILY 07/04/21 07/04/21 History Dulaglutide [Trulicity] 3 mg SQ TH 07/04/21 07/04/21 History allopurinoL [Zyloprim] 100 mg PO DAILY 07/04/21 07/04/21 History predniSONE See Taper PO DIRECTED 07/04/21 07/04/21 History Allergies Allergy/AdvReac Type Severity Reaction Status Date / Time latex Allergy Rash/Hives Verified 07/04/21 23:07 Physical Exam Vitals: Vital Signs Temp Pulse Resp BP Pulse Ox 07/05/21 11:00 62 18 132/59 97 07/05/21 10:00 60 14 127/57 96 07/05/21 09:00 60 17 122/60 96 07/05/21 08:00 62 14 120/63 98 07/05/21 07:00 61 14 129/67 96 07/05/21 06:00 60 10 L 130/54 96 07/05/21 05:00 63 15 138/60 94 L 07/05/21 04:00 87 17 133/65 97 07/05/21 03:00 132/57 07/05/21 02:00 66 9 L 135/62 96 07/05/21 01:00 97.3 F L 65 148/74 97 07/05/21 00:11 67 18 139/48 98 07/05/21 00:00 67 18 98 07/04/21 23:00 72 99 07/04/21 22:20 76 18 165/62 96 07/04/21 21:06 69 18 140/69 99 07/04/21 21:00 82 21 07/04/21 20:21 68 21 07/04/21 19:33 97.6 F 80 80 H 111/61 99 Intake and Output 07/04/21 07/05/21 07/05/21 22:59 06:59 14:59 Intake Total 971.985 871.635 Output Total 0 250 Balance 971.985 621.635 Intake: IV 950 750 D5-0.45% NaCl with KCl 750 750 20Meq/l 1,000 ml @ 150 mls/hr IV .[id number] [facility]IN Rx# :[id number] Sodium Chloride 0.9% 1, 200 000 ml @ 200 mls/hr IV . Q5H [facility]IN Rx#:[id number] Intake, IV Titration 21.985 121.635 Amount Heparin Sod,Pork in 0.45% 121.635 NaCl 25,000 unit In 0.45 % NaCl 1 250ml.bag @ 18 UNITS/KG/HR 15.268 mls/hr IV .[id number] [facility]IN Rx#: [id number] Insulin Regular 100 unit 21.985 In Sodium Chloride 0.9% 100 ml @ 0.1 UNITS/KG/HR 8.567 mls/hr IV .[id number] [facility]IN Rx#:[id number] Output: Urine 0 250 Other: # Voids 1 Weight 84.822 kg 84.822 kg 84.822 kg Physical Exam: Revealed 70-year-old female in no distress. On room air. Head: Atraumatic, normocephalic. HEENT:[Neck is supple.] [No neck masses.] [No thyromegaly.] [No JVD.] Chest: [Clear throughout, no crackles, no rhonchi, no wheezes.] Cardiac Exam: [Normal S1 and S2, no S3 gallop, no murmur.] Abdomen: [Soft, nontender, no megaly, no rebound, no guarding, normal bowel sounds.] Extremities: [No clubbing, no edema, no cyanosis.] Neurological Exam: [No focal neurologic deficit.] Alert oriented 3. Psychiatric: Normal mood affect and normal mental status examination. Skin: No rashes. Musculoskeletal no deformities and no limitation in range of motion. Results - Laboratory Findings CBC and BMP: 07/05/21 04:05 07/05/21 08:10 PT/INR, D-dimer PT 10.2 sec (9.0-12.0) 07/04/21 20:17 INR 0.9 (<1.2) 07/04/21 20:17 D-Dimer 4.77 mg/L FEU (<0.60) H 07/04/21 20:17 Abnormal lab findings: Abnormal Labs 07/04/21 07/04/21 07/04/21 20:17 20:17 20:17 WBC 12.6 H Hct 48.5 H Neutrophils # 9.6 H APTT 21.4 L D-Dimer 4.77 H Sodium 129 L Potassium Chloride 86 L Carbon Dioxide 17 L BUN 34 H Glucose 470 H POC Glucose (mg/dL) Calcium 10.3 H Phosphorus Urine Glucose (UA) Urine Ketones Ur Leukocyte Esterase Urine WBC Urine Mucus 07/04/21 07/04/21 07/05/21 22:20 23:30 00:41 WBC Hct Neutrophils # APTT D-Dimer Sodium Potassium Chloride Carbon Dioxide BUN Glucose POC Glucose (mg/dL) 323 H 200 H Calcium Phosphorus Urine Glucose (UA) 4+ H Urine Ketones 2+ H Ur Leukocyte Esterase Small H Urine WBC 14 H Urine Mucus Rare H 07/05/21 07/05/21 07/05/21 01:33 01:42 03:59 WBC Hct Neutrophils # APTT D-Dimer Sodium 134 L Potassium 3.2 L Chloride Carbon Dioxide 20 L BUN 27 H Glucose 101 H POC Glucose (mg/dL) 116 H 114 H Calcium Phosphorus 1.8 L Urine Glucose (UA) Urine Ketones Ur Leukocyte Esterase Urine WBC Urine Mucus 07/05/21 07/05/21 07/05/21 04:05 04:05 05:13 WBC 10.8 H Hct Neutrophils # APTT D-Dimer Sodium 134 L Potassium 3.4 L Chloride Carbon Dioxide 19 L BUN 24 H Glucose 119 H POC Glucose (mg/dL) 114 H Calcium Phosphorus Urine Glucose (UA) Urine Ketones Ur Leukocyte Esterase Urine WBC Urine Mucus 02/03/1607/05/21 07/05/21 05:56 06:47 07:59 WBC Hct Neutrophils # APTT >200.0 H* D-Dimer Sodium Potassium Chloride Carbon Dioxide BUN Glucose POC Glucose (mg/dL) 131 H 179 H Calcium Phosphorus Urine Glucose (UA) Urine Ketones Ur Leukocyte Esterase Urine WBC Urine Mucus 07/05/21 07/05/21 07/05/21 08:10 09:23 10:11 WBC Hct Neutrophils # APTT D-Dimer Sodium 133 L Potassium Chloride Carbon Dioxide 18 L BUN Glucose 155 H POC Glucose (mg/dL) 193 H 165 H Calcium Phosphorus Urine Glucose (UA) Urine Ketones Ur Leukocyte Esterase Urine WBC Urine Mucus 07/05/21 11:03 WBC Hct Neutrophils # APTT D-Dimer Sodium Potassium Chloride Carbon Dioxide BUN Glucose POC Glucose (mg/dL) 183 H Calcium Phosphorus Urine Glucose (UA) Urine Ketones Ur Leukocyte Esterase Urine WBC Urine Mucus - Diagnostic Findings CT scan - chest: image reviewed (As noted in HPI.) Assessment and Plan Assessment: Impression: Acute on chronic respiratory failure secondary to subacute pulmonary embolism most likely triggered by COVID-19 infection although the patient does have family history of thromboembolic disease and that is another contributing factor. History of COVID-19 pneumonia March 2021 Family history of thromboembolic disease. Acute diabetic ketoacidosis. History of hypothyroidism History of hypertension Recommendation: Continue heparin, and follow protocol. Continue DKA protocol. Echocardiogram to determine whether the patient has a right ventricular strain and decide whether the patient will benefit from thrombolytic therapy. Vascular surgery to evaluate. For possible EKOS We'll continue to monitor closely in the ICU for now. Prognosis is fairly guarded. Time with Patient: Greater than 30
[2021-07-05 11:58] LABS: Glucose,Whole Blood 169 mg/dL (75-99)
[2021-07-05] MEDS: INSULIN ASPART (NovoLOG) 100 UNIT/ML VIAL SQ SCH ×3 (12:16→20:34)
--- NOTE | 2021-07-05 15:02 | P.GSCN ---
History of Present Illness Consult date: 07/05/21 Reason for Consult: Bilateral Pulmonary Emboli Requesting physician: Osman Parisi History of present illness: This is a 70-year-old female who presented to the emergency department with complaints of shortness of breath, weakness and weight loss. Patient was found to have bilateral pulmonary embolism per CT angiogram of the chest. Vascular surgery was consulted for this reason. Patient states she has no previous history of DVT or pulmonary embolism. She has not had any recent traveling or recent surgery. States she does not lead a sedentary lifestyle. She does admit that she had coated April 15 and had been treated at home. States that she has been on a steroid taper dose for continued shortness of breath. Patient is vaccinated however did not get her third booster. She is denying any chest pain, states shortness of breath has improved some. She does have more shortness of breath with exertion. She is not requiring any oxygen, her oxygen saturation is 98% on room air. Troponins were negative and awaiting echocardiogram. Currently on heparin drip. She was also noted to have diabetic ketoacidosis on admission. Her past medical history includes diabetes mellitus, hypertension, and she denies being a smoker. He has denied any pain in her lower extremities or swelling. Review of Systems 14 point review of systems was completed all pertinent positives and negatives as stated in the HPI. Past Medical History Past Medical History: Diabetes Mellitus, GERD/Reflux, Hyperlipidemia, Hypertension, Pneumonia, Skin Disorder, Sleep Apnea/CPAP/BIPAP, Thyroid Disorder Additional Past Medical History / Comment(s): NO CPAP. ROSACEA. History of Any Multi-Drug Resistant Organisms: None Reported Past Surgical History: Section, Hysterectomy Additional Past Surgical History / Comment(s): Eye surgery Past Anesthesia/Blood Transfusion Reactions: Motion Sickness Past Psychological History: Depression Smoking Status: Never smoker Past Alcohol Use History: None Reported Past Drug Use History: None Reported Medications and Allergies Home Medications Medication Instructions Recorded Confirmed Type FLUoxetine HCL [PROzac] 20 mg PO DAILY 03/15/16 07/04/21 History Levothyroxine Sodium [Synthroid] 112 mcg PO DAILY 03/15/16 07/04/21 History Lisinopril-Hctz 10-12.5 mg 1 tab PO DAILY 03/15/16 07/04/21 History [Zestoretic 10-12.5] Albuterol Sulfate [Albuterol 2 puff PO RT-Q6H PRN 07/04/21 07/04/21 History Sulfate Hfa] Amoxicillin/Potassium Clav 1 tab PO BID 07/04/21 07/04/21 History [Augmentin 875-125 Tablet] Dapagliflozin Propanediol [Farxiga] 10 mg PO DAILY 07/04/21 07/04/21 History Dulaglutide [Trulicity] 3 mg SQ TH 07/04/21 07/04/21 History allopurinoL [Zyloprim] 100 mg PO DAILY 07/04/21 07/04/21 History predniSONE See Taper PO DIRECTED 07/04/21 07/04/21 History Allergies Allergy/AdvReac Type Severity Reaction Status Date / Time latex Allergy Rash/Hives Verified 07/04/21 23:07 Surgical - Exam Vital Signs Temp Pulse Resp BP Pulse Ox 97.6 F 80 80 H 111/61 99 07/04/21 19:33 07/04/21 19:33 07/04/21 19:33 07/04/21 19:33 07/04/21 19:33 General appearance: The patient is alert, oriented, appears in no acute distress. HET: Head is normocephalic and atraumatic. Pupils are equal and reactive. Neck: Supple without lymphadenopathy. Trachea midline. No audible carotid bruit. Heart: S1 S2. Regular rate and rhythm. Lungs: Clear to auscultation bilaterally. Abdomen: Soft, nontender, nondistended. Extremities: Normal skin color and turgor. No cyanosis, rash, ulceration, clubbing, or edema. Radial and pedal pulses are 2/4 bilaterally. Neurological: No focal deficits. Alert and oriented 3. Results - Labs 07/05/21 04:05 07/05/21 08:10 Abnormal Lab Results - Last 24 Hours (Table) 07/04/21 07/04/21 07/04/21 Range/Units 20:17 20:17 20:17 WBC 12.6 H (3.8-10.6) k/uL Hct 48.5 H (34.0-46.0) % Neutrophils # 9.6 H (1.3-7.7) k/uL APTT 21.4 L (22.0-30.0) sec D-Dimer 4.77 H (<0.60) mg/L FEU Sodium 129 L (137-145) mmol/L Potassium (3.5-5.1) mmol/L Chloride 86 L (98-107) mmol/L Carbon Dioxide 17 L (22-30) mmol/L BUN 34 H (7-17) mg/dL Glucose 470 H (74-99) mg/dL POC Glucose (mg/dL) (75-99) mg/dL Calcium 10.3 H (8.4-10.2) mg/dL Phosphorus (2.5-4.5) mg/dL Urine Glucose (UA) (Negative) Urine Ketones (Negative) Ur Leukocyte Esterase (Negative) Urine WBC (0-5) /hpf Urine Mucus (None) /hpf 07/04/21 07/04/21 07/05/21 Range/Units 22:20 23:30 00:41 WBC (3.8-10.6) k/uL Hct (34.0-46.0) % Neutrophils # (1.3-7.7) k/uL APTT (22.0-30.0) sec D-Dimer (<0.60) mg/L FEU Sodium (137-145) mmol/L Potassium (3.5-5.1) mmol/L Chloride (98-107) mmol/L Carbon Dioxide (22-30) mmol/L BUN (7-17) mg/dL Glucose (74-99) mg/dL POC Glucose (mg/dL) 323 H 200 H (75-99) mg/dL Calcium (8.4-10.2) mg/dL Phosphorus (2.5-4.5) mg/dL Urine Glucose (UA) 4+ H (Negative) Urine Ketones 2+ H (Negative) Ur Leukocyte Esterase Small H (Negative) Urine WBC 14 H (0-5) /hpf Urine Mucus Rare H (None) /hpf 07/05/21 07/05/21 07/05/21 Range/Units 01:33 01:42 03:59 WBC (3.8-10.6) k/uL Hct (34.0-46.0) % Neutrophils # (1.3-7.7) k/uL APTT (22.0-30.0) sec D-Dimer (<0.60) mg/L FEU Sodium 134 L (137-145) mmol/L Potassium 3.2 L (3.5-5.1) mmol/L Chloride (98-107) mmol/L Carbon Dioxide 20 L (22-30) mmol/L BUN 27 H (7-17) mg/dL Glucose 101 H (74-99) mg/dL POC Glucose (mg/dL) 116 H 114 H (75-99) mg/dL Calcium (8.4-10.2) mg/dL Phosphorus 1.8 L (2.5-4.5) mg/dL Urine Glucose (UA) (Negative) Urine Ketones (Negative) Ur Leukocyte Esterase (Negative) Urine WBC (0-5) /hpf Urine Mucus (None) /hpf 07/05/21 07/05/21 07/05/21 Range/Units 04:05 04:05 05:13 WBC 10.8 H (3.8-10.6) k/uL Hct (34.0-46.0) % Neutrophils # (1.3-7.7) k/uL APTT (22.0-30.0) sec D-Dimer (<0.60) mg/L FEU Sodium 134 L (137-145) mmol/L Potassium 3.4 L (3.5-5.1) mmol/L Chloride (98-107) mmol/L Carbon Dioxide 19 L (22-30) mmol/L BUN 24 H (7-17) mg/dL Glucose 119 H (74-99) mg/dL POC Glucose (mg/dL) 114 H (75-99) mg/dL Calcium (8.4-10.2) mg/dL Phosphorus (2.5-4.5) mg/dL Urine Glucose (UA) (Negative) Urine Ketones (Negative) Ur Leukocyte Esterase (Negative) Urine WBC (0-5) /hpf Urine Mucus (None) /hpf 07/05/21 07/05/21 07/05/21 Range/Units 05:56 06:47 07:59 WBC (3.8-10.6) k/uL Hct (34.0-46.0) % Neutrophils # (1.3-7.7) k/uL APTT >200.0 H* (22.0-30.0) sec D-Dimer (<0.60) mg/L FEU Sodium (137-145) mmol/L Potassium (3.5-5.1) mmol/L Chloride (98-107) mmol/L Carbon Dioxide (22-30) mmol/L BUN (7-17) mg/dL Glucose (74-99) mg/dL POC Glucose (mg/dL) 131 H 179 H (75-99) mg/dL Calcium (8.4-10.2) mg/dL Phosphorus (2.5-4.5) mg/dL Urine Glucose (UA) (Negative) Urine Ketones (Negative) Ur Leukocyte Esterase (Negative) Urine WBC (0-5) /hpf Urine Mucus (None) /hpf Microbiology - Last 24 Hours (Table) 07/04/21 22:20 Urine Culture - Preliminary Urine,Voided Diabetes panel 07/04/21 07/05/21 07/05/21 Range/Units 20:17 01:33 04:05 Sodium 129 L 134 L 134 L (137-145) mmol/L Potassium 4.1 3.2 L 3.4 L (3.5-5.1) mmol/L Chloride 86 L 101 101 (98-107) mmol/L Carbon Dioxide 17 L 20 L 19 L (22-30) mmol/L BUN 34 H 27 H 24 H (7-17) mg/dL Creatinine 1.04 0.79 0.73 (0.52-1.04) mg/dL Glucose 470 H 101 H 119 H (74-99) mg/dL Calcium 10.3 H 8.5 (8.4-10.2) mg/dL AST 23 (14-36) U/L ALT 31 (4-34) U/L Alkaline Phosphatase 123 (38-126) U/L Total Protein 8.0 (6.3-8.2) g/dL Albumin 4.7 (3.5-5.0) g/dL Calcium panel 07/04/21 07/05/21 07/05/21 Range/Units 20:17 01:33 04:05 Calcium 10.3 H 8.5 (8.4-10.2) mg/dL Phosphorus 1.8 L 3.0 (2.5-4.5) mg/dL Albumin 4.7 (3.5-5.0) g/dL Pituitary panel 07/04/21 07/05/21 07/05/21 Range/Units 20:17 01:33 04:05 Sodium 129 L 134 L 134 L (137-145) mmol/L Potassium 4.1 3.2 L 3.4 L (3.5-5.1) mmol/L Chloride 86 L 101 101 (98-107) mmol/L Carbon Dioxide 17 L 20 L 19 L (22-30) mmol/L BUN 34 H 27 H 24 H (7-17) mg/dL Creatinine 1.04 0.79 0.73 (0.52-1.04) mg/dL Glucose 470 H 101 H 119 H (74-99) mg/dL Calcium 10.3 H 8.5 (8.4-10.2) mg/dL Adrenal panel 07/04/21 07/05/21 07/05/21 Range/Units 20:17 01:33 04:05 Sodium 129 L 134 L 134 L (137-145) mmol/L Potassium 4.1 3.2 L 3.4 L (3.5-5.1) mmol/L Chloride 86 L 101 101 (98-107) mmol/L Carbon Dioxide 17 L 20 L 19 L (22-30) mmol/L BUN 34 H 27 H 24 H (7-17) mg/dL Creatinine 1.04 0.79 0.73 (0.52-1.04) mg/dL Glucose 470 H 101 H 119 H (74-99) mg/dL Calcium 10.3 H 8.5 (8.4-10.2) mg/dL Total Bilirubin 1.2 (0.2-1.3) mg/dL AST 23 (14-36) U/L ALT 31 (4-34) U/L Alkaline Phosphatase 123 (38-126) U/L Total Protein 8.0 (6.3-8.2) g/dL Albumin 4.7 (3.5-5.0) g/dL - Imaging Comments: CT angiogram chest reports bilateral pulmonary emboli with evidence of right heart strain, right lower lobe consolidation with central lucency remains presented and appears smaller compared to 06/12/2021. Differential includes infectious/inflammatory etiologies with neoplastic process not entirely excluded. Consider short-term follow-up imaging to ensure resolution in 4-6 weeks. Decrease in size of pleural effusion. Echocardiogram: Mild concentric left ventricular hypertrophy, left ventricular systolic function low normal EF between 50 and 55%. Right ventricle normal in size, right ventricular systolic function normal. Mild mitral annular calcification, trace mitral regurgitation, trace tricuspid regurgitation, trivial pericardial effusion present Assessment and Plan Assessment: 1. Bilateral pulmonary embolism without any evidence of right heart strain 2. Right lower extremity DVT 3. Diabetic Ketoacidosis 4. History of hypertension 5. Recent history of Covid 19 infection March 2021 Plan: 1. Continue heparin drip, may transition to oral anticoagulation of your choice recommend at least 6 months duration 2. No evidence of right heart strain, no indication for EKOS 3. Lower extremity venous duplex ordered 4. Continue medical management Thank you for this consultation and allowing us take part in the plan of care of your patient during her hospital stay. The impression and plan of care has been dictated as directed. I performed a history and examination of this patient, discussed the same with the dictator. I agree with the dictator's note ,documented as a scribe. Any additional findings or plans will be noted.
[2021-07-05 15:22] LABS: Calcium 8.6 mg/dL (8.4-10.2); Phosphorus 2.6 mg/dL (2.5-4.5); Potassium 3.9 mmol/L (3.5-5.1)
[2021-07-05 17:03] LABS: Glucose,Whole Blood 182 mg/dL (75-99)
[2021-07-05] MEDS: HEPARIN SOD,PORK IN 0.45% NACL 25,000 UNIT in 0.45% NACL 1 250ML.BAG IV SCH (17:11)
[2021-07-05 20:26] LABS: Glucose,Whole Blood 269 mg/dL (75-99)
--- NOTE | 2021-07-05 22:00 | P.HPIM ---
History of Present Illness H&P Date: 07/05/21 Chief Complaint: shortness of breath Vidya Berg is a 70 yo F with PMH of T2DM, HTN, HLD who presented to the ED complaining of worsening malaise and shortness of breath. She states that ever since she had Covid in March 2021 she has remained weak and lethargic and has been getting easily winded. She states that in the past few weeks these symptoms worsened and she became more short of breath so decided to come in to be evaluated. She denies any fever, chills or cough. She is a nonsmoker. On presentation she was tachypneic, labs significant for WBC 12k, d-dimer 4.77, glucose 470. CTA with bilateral PE. Review of Systems All systems: negative Constitutional: Reports malaise, Reports weakness, Denies chills, Denies fever Eyes: denies blurred vision, denies pain Ears, nose, mouth and throat: Denies headache, Denies sore throat Cardiovascular: Denies chest pain, Denies shortness of breath Respiratory: Reports dyspnea, Denies cough Gastrointestinal: Denies abdominal pain, Denies diarrhea, Denies nausea, Denies vomiting Genitourinary: Denies dysuria, Denies hematuria Musculoskeletal: Denies myalgias Integumentary: Denies pruritus, Denies rash Neurological: Denies numbness, Denies weakness Psychiatric: Denies anxiety, Denies depression Endocrine: Denies fatigue, Denies weight change Past Medical History Past Medical History: Diabetes Mellitus, GERD/Reflux, Hyperlipidemia, H ypertension, Pneumonia, Skin Disorder, Sleep Apnea/CPAP/BIPAP, Thyroid Disorder Additional Past Medical History / Comment(s): NO CPAP. ROSACEA. History of Any Multi-Drug Resistant Organisms: None Reported Past Surgical History: Section, Hysterectomy Additional Past Surgical History / Comment(s): Eye surgery Past Anesthesia/Blood Transfusion Reactions: Motion Sickness Past Psychological History: Depression Smoking Status: Never smoker Past Alcohol Use History: None Reported Past Drug Use History: None Reported Medications and Allergies Home Medications Medication Instructions Recorded Confirmed Type FLUoxetine HCL [PROzac] 20 mg PO DAILY 03/15/16 07/04/21 History Levothyroxine Sodium [Synthroid] 112 mcg PO DAILY 03/15/16 07/04/21 History Lisinopril-Hctz 10-12.5 mg 1 tab PO DAILY 03/15/16 07/04/21 History [Zestoretic 10-12.5] Albuterol Sulfate [Albuterol 2 puff PO RT-Q6H PRN 07/04/21 07/04/21 History Sulfate Hfa] Amoxicillin/Potassium Clav 1 tab PO BID 07/04/21 07/04/21 History [Augmentin 875-125 Tablet] Dapagliflozin Propanediol [Farxiga] 10 mg PO DAILY 07/04/21 07/04/21 History Dulaglutide [Trulicity] 3 mg SQ TH 07/04/21 07/04/21 History allopurinoL [Zyloprim] 100 mg PO DAILY 07/04/21 07/04/21 History predniSONE See Taper PO DIRECTED 07/04/21 07/04/21 History Allergies Allergy/AdvReac Type Severity Reaction Status Date / Time latex Allergy Rash/Hives Verified 07/04/21 23:07 Physical Exam Vitals: Vital Signs Temp Pulse Resp BP Pulse Ox 07/05/21 21:00 69 17 126/59 96 07/05/21 20:00 98.2 F 73 18 128/58 97 07/05/21 19:00 71 10 L 128/50 96 07/05/21 18:00 75 20 115/63 97 07/05/21 17:00 97.7 F 73 18 116/62 98 07/05/21 16:00 67 18 122/56 95 07/05/21 15:00 64 13 129/62 95 07/05/21 14:00 78 16 122/54 94 L 07/05/21 13:00 74 18 128/61 94 L 07/05/21 12:00 97.7 F 80 16 130/57 95 07/05/21 11:00 62 18 132/59 97 07/05/21 10:00 60 14 127/57 96 07/05/21 09:00 60 17 122/60 96 07/05/21 08:00 62 14 120/63 98 07/05/21 07:00 61 14 129/67 96 07/05/21 06:00 60 10 L 130/54 96 07/05/21 05:00 63 15 138/60 94 L 07/05/21 04:00 87 17 133/65 97 07/05/21 03:00 132/57 07/05/21 02:00 66 9 L 135/62 96 07/05/21 01:00 97.3 F L 65 148/74 97 07/05/21 00:11 67 18 139/48 98 07/05/21 00:00 67 18 98 07/04/21 23:00 72 99 07/04/21 22:20 76 18 165/62 96 Intake and Output 07/05/21 07/05/21 07/05/21 06:59 14:59 22:59 Intake Total 971.985 961.635 242.42 Output Total 0 250 500 Balance 971.985 711.635 -257.58 Intake: IV 950 840 140 .9NS 40 140 D5-0.45% NaCl with KCl 750 800 20Meq/l 1,000 ml @ 150 mls/hr IV .[id number] [facility] Rx# :[id number] Sodium Chloride 0.9% 1, 200 000 ml @ 200 mls/hr IV . Q5H [facility] Rx#:[id number] Intake, IV Titration 21.985 121.635 102.42 Amount Heparin Sod,Pork in 0.45% 121.635 102.42 NaCl 25,000 unit In 0.45 % NaCl 1 250ml.bag @ 18 UNITS/KG/HR 15.268 mls/hr IV .[id number] EIVN Rx#: [id number] Insulin Regular 100 unit 21.985 In Sodium Chloride 0.9% 100 ml @ 0.1 UNITS/KG/HR 8.567 mls/hr IV .[id number] [facility] Rx#:[id number] Output: Urine 0 250 500 Other: # Voids 1 1 Weight 84.822 kg 84.822 kg General: well nourished, well developed, NAD. Vitals reviewed Eyes: PERRL, EOMI, conjunctiva normal HENT: normocephalic, mucus membranes moist Neck: supple, no JVD Lungs: normal respiratory effort, no wheezes or rales CV: Regular rate and rhythm, no murmur. Peripheral pulses 2+ Abdomen: soft, nondistended, no organomegaly Lymph: no cervical or axillary LAD Skin: warm and dry. Neuro: A&Ox3, normal mood and affect Results CBC & Chem 7: 07/05/21 04:05 07/05/21 14:29 Labs: Abnormal Lab Results - Last 24 Hours (Table) 07/04/21 07/04/21 07/05/21 Range/Units 22:20 23:30 00:41 WBC (3.8-10.6) k/uL APTT (22.0-30.0) sec Sodium (137-145) mmol/L Potassium (3.5-5.1) mmol/L Carbon Dioxide (22-30) mmol/L BUN (7-17) mg/dL Glucose (74-99) mg/dL POC Glucose (mg/dL) 323 H 200 H (75-99) mg/dL Phosphorus (2.5-4.5) mg/dL Urine Glucose (UA) 4+ H (Negative) Urine Ketones 2+ H (Negative) Ur Leukocyte Esterase Small H (Negative) Urine WBC 14 H (0-5) /hpf Urine Mucus Rare H (None) /hpf 07/05/21 07/05/21 07/05/21 Range/Units 01:33 01:42 03:59 WBC (3.8-10.6) k/uL APTT (22.0-30.0) sec Sodium 134 L (137-145) mmol/L Potassium 3.2 L (3.5-5.1) mmol/L Carbon Dioxide 20 L (22-30) mmol/L BUN 27 H (7-17) mg/dL Glucose 101 H (74-99) mg/dL POC Glucose (mg/dL) 116 H 114 H (75-99) mg/dL Phosphorus 1.8 L (2.5-4.5) mg/dL Urine Glucose (UA) (Negative) Urine Ketones (Negative) Ur Leukocyte Esterase (Negative) Urine WBC (0-5) /hpf Urine Mucus (None) /hpf 07/05/21 07/05/21 07/05/21 Range/Units 04:05 04:05 05:13 WBC 10.8 H (3.8-10.6) k/uL APTT (22.0-30.0) sec Sodium 134 L (137-145) mmol/L Potassium 3.4 L (3.5-5.1) mmol/L Carbon Dioxide 19 L (22-30) mmol/L BUN 24 H (7-17) mg/dL Glucose 119 H (74-99) mg/dL POC Glucose (mg/dL) 114 H (75-99) mg/dL Phosphorus (2.5-4.5) mg/dL Urine Glucose (UA) (Negative) Urine Ketones (Negative) Ur Leukocyte Esterase (Negative) Urine WBC (0-5) /hpf Urine Mucus (None) /hpf 07/05/21 07/05/21 07/05/21 Range/Units 05:56 06:47 07:59 WBC (3.8-10.6) k/uL APTT >200.0 H* (22.0-30.0) sec Sodium (137-145) mmol/L Potassium (3.5-5.1) mmol/L Carbon Dioxide (22-30) mmol/L BUN (7-17) mg/dL Glucose (74-99) mg/dL POC Glucose (mg/dL) 131 H 179 H (75-99) mg/dL Phosphorus (2.5-4.5) mg/dL Urine Glucose (UA) (Negative) Urine Ketones (Negative) Ur Leukocyte Esterase (Negative) Urine WBC (0-5) /hpf Urine Mucus (None) /hpf 07/05/21 07/05/21 07/05/21 Range/Units 08:10 09:23 10:11 WBC (3.8-10.6) k/uL APTT (22.0-30.0) sec Sodium 133 L (137-145) mmol/L Potassium (3.5-5.1) mmol/L Carbon Dioxide 18 L (22-30) mmol/L BUN (7-17) mg/dL Glucose 155 H (74-99) mg/dL POC Glucose (mg/dL) 193 H 165 H (75-99) mg/dL Phosphorus (2.5-4.5) mg/dL Urine Glucose (UA) (Negative) Urine Ketones (Negative) Ur Leukocyte Esterase (Negative) Urine WBC (0-5) /hpf Urine Mucus (None) /hpf 07/05/21 07/05/21 07/05/21 Range/Units 11:03 11:57 14:29 WBC (3.8-10.6) k/uL APTT >200.0 H* (22.0-30.0) sec Sodium (137-145) mmol/L Potassium (3.5-5.1) mmol/L Carbon Dioxide (22-30) mmol/L BUN (7-17) mg/dL Glucose (74-99) mg/dL POC Glucose (mg/dL) 183 H 169 H (75-99) mg/dL Phosphorus (2.5-4.5) mg/dL Urine Glucose (UA) (Negative) Urine Ketones (Negative) Ur Leukocyte Esterase (Negative) Urine WBC (0-5) /hpf Urine Mucus (None) /hpf 07/05/21 07/05/21 07/05/21 Range/Units 14:29 17:02 20:24 WBC (3.8-10.6) k/uL APTT (22.0-30.0) sec Sodium 133 L (137-145) mmol/L Potassium (3.5-5.1) mmol/L Carbon Dioxide 21 L (22-30) mmol/L BUN (7-17) mg/dL Glucose 205 H (74-99) mg/dL POC Glucose (mg/dL) 182 H 269 H (75-99) mg/dL Phosphorus (2.5-4.5) mg/dL Urine Glucose (UA) (Negative) Urine Ketones (Negative) Ur Leukocyte Esterase (Negative) Urine WBC (0-5) /hpf Urine Mucus (None) /hpf Microbiology - Last 24 Hours (Table) 07/04/21 22:20 Urine Culture - Preliminary Urine,Voided Thrombosis Risk Factor Assmnt - Choose All That Apply Any of the Below Risk Factors Present?: Yes Each Factor Represents 1 point: Obesity (BMI >25) Each Risk Factor Represents 3 Points: History of DVT/PE Thrombosis Risk Factor Assessment Total Risk Factor Score: 4 Thrombosis Risk Factor Assessment Level: Moderate Risk Assessment and Plan Plan: 1. Acute PE, secondary to recent Covid. Start heparin drip, Echo ordered. Consult to pulmonology and vascular surgery to evaluate for EKOS 2. DKA. Secondary to above. Insulin drip and IV fluids, transition to levemir and novolog today 3. Hypothyroid. Continue synthroid
[2021-07-06] MEDS: INSULIN DETEMIR (LEVEMIR) 100 UNIT/ML SYR SQ SCH (06:06)
[2021-07-06] MEDS: LEVOTHYROXINE 112 MCG TAB PO SCH (06:06)
[2021-07-06 06:22] LABS: HGB 13.3 gm/dL (11.4-16.0); MCH 28.7 pg (25.0-35.0); MCHC 32.4 g/dL (31.0-37.0); MCV 88.8 fL (80.0-100.0); Mean Platelet Volume 7.1; Platelet Count 216 k/uL (150-450); RBC 4.62 m/uL (3.80-5.40); RDW 15.3 % (11.5-15.5); WBC 6.3 k/uL (3.8-10.6)
[2021-07-06 06:42] LABS: African American GFR (CKD) >90 (>60 ml/min/1.73 sqM); Anion Gap 6 mmol/L; Blood Urea Nitrogen 16 mg/dL (7-17); Calcium 8.9 mg/dL (8.4-10.2); Carbon Dioxide 23 mmol/L (22-30); Chloride 105 mmol/L (98-107); Glucose 157 mg/dL (74-99); Non-African American GFR(CKD) >90 (>60 ml/min/1.73 sqM); Potassium 4.2 mmol/L (3.5-5.1); Sodium 134 mmol/L (137-145)
[2021-07-06 06:52] LABS: Glucose,Whole Blood 151 mg/dL (75-99)
[2021-07-06] MEDS: INSULIN ASPART (NovoLOG) 100 UNIT/ML VIAL SQ SCH ×2 (06:55→11:58)
--- NOTE | 2021-07-06 08:12 | P.PN ---
Subjective HISTORY OF PRESENTING ILLNESS Patient is pleasant 70-year-old female with history of diabetes hypertension hypothyroidism and COVID-19 infection March 2021 who presents secondary to multiple complaints including weakness and fatigue over last 2 months since February the infection, shortness of breath. These symptoms appear to been going on for 2 months. She states with her Covid infection she did have some shortness breath however felt somewhat better for a week and then started feeling worse. This has been ongoing for some time and she was recently started on steroids and more recently she had some nausea and came to the hospital. Bl ood work showed DKA with elevated glucose level which she believes is related to the steroids. White blood cell count 12.6, hemoglobin 15.6, d-dimer 4.7, sodium 129, bicarb 17, BUN 34, creatinine 1.0, glucose 470, calcium 10.3, troponin 0.012. Lactic acid 1.5. Blood pressures have remained stable area she denies any lightheadedness or dizziness. She has had decreased appetite and has not been eating much. EKG shows normal sinus rhythm, normal axis, no significant ST or T-wave abnormalities. CTA shows bilateral pulmonary emboli and right lower lobe consolidation with central lucency which was identified from prior CT from May. 07/06 Patient seen and examined. Patient's sugar levels have improved and states her appetite has improved. She still has some pleuritic chest pressure which is worse with deep inspiration and sneezing. Denies any real shortness of breath. ProBNP noted to be normal yesterday and echo shows preserved EF without any significant right heart strain, normal RVSP. PHYSICAL EXAMINATION Vital signs reviewed. CONSTITUTIONAL: No apparent distress. HEENT: Head is normocephalic. Pupils are equal, round. Sclerae anicteric. Mucous membranes of the mouth are moist. No JVD. No carotid bruit. CHEST EXAMINATION: Lungs are clear to auscultation. No chest wall tenderness is noted on palpation or with deep breathing. HEART EXAMINATION: Regular rate and rhythm. S1, S2 heard. No murmurs, gallops or rub. ABDOMEN: Soft, nontender. Positive bowel sounds. EXTREMITIES: 2+ peripheral pulses, no lower extremity edema and no calf tenderness. NEUROLOGIC EXAMINATION: Patient is awake, alert and oriented x3. ASSESSMENT 1. Acute on chronic respiratory failure likely related to pulmonary emboli 2. Bilateral pulmonary emboli, appears low risk PE without right heart strain 3. Right lower lobe consolidation, differential infectious versus cancer versus other 4. Recent COVID-19 infection March 2021 5. Recent weight loss, fatigue unclear related to pulmonary embolism 6. Diabetes mellitus type 2, s/p DKA PLAN ProBNP and troponins noted to be normal with echo not showing any right heart strain. Therefore no indication for EKOS. Continue anticoagulation. Chest pressure is pleuritic related to PE and noncardiac. No further recommendations from a cardiac standpoint. His color any questions. Objective - Vital Signs Vital signs: Vital Signs Temp 98.3 F 07/06/21 00:00 Pulse 81 07/06/21 07:00 Resp 16 07/06/21 07:00 BP 120/59 07/06/21 07:00 Pulse Ox 97 07/06/21 07:00 Intake & Output 07/05/21 07/06/21 07/06/21 18:59 06:59 18:59 Intake Total 1164.055 272.38 20 Output Total 250 1100 Balance 914.055 -827.62 20 Weight 84.822 kg Intake: IV 940 220 20 .9NS 140 220 20 D5-0.45% NaCl with KCl 800 20Meq/l 1,000 ml @ 150 mls/hr IV .Q6H40M [facility] Rx# :[id number] Intake, IV Titration 224.055 52.38 Amount Heparin Sod,Pork in 0.45% 224.055 52.38 NaCl 25,000 unit In 0.45 % NaCl 1 250ml.bag @ 18 UNITS/KG/HR 15.268 mls/hr IV .[id number] [facility] Rx#: [id number] Output: Urine 250 1100 Other: # Voids 1 - Labs CBC & Chem 7: 07/06/21 05:43 07/06/21 05:43 Labs: Abnormal Lab Results - Last 24 Hours (Table) 07/05/21 07/05/21 07/05/21 Range/Units 08:10 09:23 10:11 APTT (22.0-30.0) sec Sodium 133 L (137-145) mmol/L Carbon Dioxide 18 L (22-30) mmol/L Glucose 155 H (74-99) mg/dL POC Glucose (mg/dL) 193 H 165 H (75-99) mg/dL 07/05/21 07/05/21 07/05/21 Range/Units 11:03 11:57 14:29 APTT >200.0 H* (22.0-30.0) sec Sodium (137-145) mmol/L Carbon Dioxide (22-30) mmol/L Glucose (74-99) mg/dL POC Glucose (mg/dL) 183 H 169 H (75-99) mg/dL 07/05/21 07/05/21 07/05/21 Range/Units 14:29 17:02 20:24 APTT (22.0-30.0) sec Sodium 133 L (137-145) mmol/L Carbon Dioxide 21 L (22-30) mmol/L Glucose 205 H (74-99) mg/dL POC Glucose (mg/dL) 182 H 269 H (75-99) mg/dL 07/05/21 07/06/21 07/06/21 Range/Units 21:24 05:43 05:43 APTT 99.5 H 48.4 H (22.0-30.0) sec Sodium 134 L (137-145) mmol/L Carbon Dioxide (22-30) mmol/L Glucose 157 H (74-99) mg/dL POC Glucose (mg/dL) (75-99) mg/dL 07/06/21 Range/Units 06:49 APTT (22.0-30.0) sec Sodium (137-145) mmol/L Carbon Dioxide (22-30) mmol/L Glucose (74-99) mg/dL POC Glucose (mg/dL) 151 H (75-99) mg/dL Microbiology - Last 24 Hours (Table) 07/04/21 22:20 Urine Culture - Preliminary Urine,Voided
[2021-07-06] MEDS ORDERED: APIXABAN 5 MG TAB PO SCH (09:15)
[2021-07-06] MEDS: FLUoxetine HCL 20 MG CAP PO SCH (09:50)
--- NOTE | 2021-07-06 10:48 | P.DS ---
Providers Date of admission: 07/04/21 22:34 Expected date of discharge: 07/06/21 Attending physician: Osman Parisi MD Consults: 07/04/21 22:35 Consult Physician Routine Consulting Provider: Camille Smith Consult Reason/Comments: bilateral PE Do you want consulting provider notified?: Yes 07/04/21 22:36 Consult Physician Routine Consulting Provider: [facility] Consult Reason/Comments: bilateral pe, echo pending for Rt heart strain Do you want consulting provider notified?: Yes 07/04/21 23:13 Consult Physician Urgent Consulting Provider: Paige Anaya Consult Reason/Comments: Bilateral PE Do you want consulting provider notified?: Yes Primary care physician: Osman Parisi MD Hospital Course: Final Diagnoses: 1. Acute PE, secondary to recent Covid (04/15). Father had history of blood clots . 2. Acute on chronic respiratory failure secondary to the above. 3. DKA. Secondary to above, resolved 4. Hypothyroid. HOspital Course:Vidya Berg is a 70 yo F with PMH of T2DM, HTN, HLD who presented to the ED complaining of worsening malaise and shortness of breath. She states that ever since she had Covid in March 2021 she has remained weak and lethargic and has been getting easily winded. She states that in the past few weeks these symptoms worsened and she became more short of breath so decided to come in to be evaluated. She denies any fever, chills or cough. She is a nonsmoker. On presentation she was tachypneic, labs significant for WBC 12k, d- dimer 4.77, glucose 470. CTA with bilateral PE. Evaluated by vascular, pulmonary and cardiology. Maintained on DKA protocol, anion gap 6, bicarb 23,blood sugars in the 150s. Tolerating diet with no nausea vomiting or diarrhea. Echo reportedly preserved LV function without right heart strain, normal RVSP. Heparin drip has been transitioned to oral Eliquis. Maintaining O2 sats in the 90s. Significant clinical improvement. Cleared by vascular surgery for discharge. Patient will be discharged home today in stable condition with guarded prognosis pending final clearance per cardiology and pulmonary. The impression and plan of care has been dictated as directed. : I performed a history and examination of this patient, discussed the same with the dictator. I agree with the dictator's note ,documented as a scribe. Any additional findings or plans will be noted. Patient Condition at Discharge: Stable Plan - Discharge Summary Discharge Rx Participant: No New Discharge Prescriptions: New Apixaban [Eliquis Starter Pack (for VTE)] 5 - 10 mg PO DIRECTED 30 Days #1 each Continue FLUoxetine HCL [PROzac] 20 mg PO DAILY Levothyroxine Sodium [Synthroid] 112 mcg PO DAILY Lisinopril-Hctz 10-12.5 mg [Zestoretic 10-12.5] 1 tab PO DAILY allopurinoL [Zyloprim] 100 mg PO DAILY Dapagliflozin Propanediol [Farxiga] 10 mg PO DAILY Albuterol Sulfate [Albuterol Sulfate Hfa] 2 puff PO RT-Q6H PRN PRN Reason: Shortness Of Breath Dulaglutide [Trulicity] 3 mg SQ TH Discontinued predniSONE See Taper PO DIRECTED Amoxicillin/Potassium Clav [Augmentin 875-125 Tablet] 1 tab PO BID Discharge Medication List FLUoxetine HCL [PROzac] 20 mg PO DAILY 03/15/16 [History] Levothyroxine Sodium [Synthroid] 112 mcg PO DAILY 03/15/16 [History] Lisinopril-Hctz 10-12.5 mg [Zestoretic 10-12.5] 1 tab PO DAILY 03/15/16 [History] Albuterol Sulfate [Albuterol Sulfate Hfa] 2 puff PO RT-Q6H PRN 07/04/21 [History] Dapagliflozin Propanediol [Farxiga] 10 mg PO DAILY 07/04/21 [History] Dulaglutide [Trulicity] 3 mg SQ TH 07/04/21 [History] allopurinoL [Zyloprim] 100 mg PO DAILY 07/04/21 [History] Apixaban [Eliquis Starter Pack (for VTE)] 5 - 10 mg PO DIRECTED 30 Days #1 each 07/06/21 [Rx] Follow up Appointment(s)/Referral(s): Osman Parisi MD [Primary Care Provider] - 3 Days
[2021-07-06 11:27] LABS: Glucose,Whole Blood 176 mg/dL (75-99)
--- NOTE | 2021-07-06 11:34 | P.PN ---
Subjective Progress Note Date: 07/06/21 Should seen and examined lying in bed as a follow-up. Patient remained in the ICU. Patient was admitted with bilateral pulmonary embolism with no evidence of right heart strain. She also was found to have a right DVT. Patient has been on heparin drip. She denies any shortness of breath or chest pain. Denies any pain in her lower extremities. Objective - Vital Signs Vital signs: Vital Signs Temp 98.3 F 07/06/21 00:00 Pulse 81 07/06/21 07:00 Resp 16 07/06/21 07:00 BP 120/59 07/06/21 07:00 Pulse Ox 97 07/06/21 07:00 Intake & Output 07/05/21 07/06/21 07/06/21 18:59 06:59 18:59 Intake Total 1164.055 272.38 40 Output Total 250 1100 0 Balance 914.055 -827.62 40 Weight 84.822 kg Intake: IV 940 220 40 0.9 Normal Saline @ 20mL/ 140 220 40 hr D5-0.45% NaCl with KCl 800 20Meq/l 1,000 ml @ 150 mls/hr IV .Q6H40M [facility] Rx# :[id number] Intake, IV Titration 224.055 52.38 Amount Heparin Sod,Pork in 0.45% 224.055 52.38 NaCl 25,000 unit In 0.45 % NaCl 1 250ml.bag @ 18 UNITS/KG/HR 15.268 mls/hr IV .[id number] [facility] Rx#: [id number] Output: Urine 250 1100 0 Other: # Voids 1 - Exam General appearance: The patient is alert, oriented, appears in no acute distress. HET: Head is normocephalic and atraumatic. Pupils are equal and reactive. Neck: Supple without lymphadenopathy. Trachea midline. No audible carotid bruit. Heart: S1 S2. Regular rate and rhythm. Lungs: Clear to auscultation bilaterally. Abdomen: Soft, nontender, nondistended. Extremities: Normal skin color and turgor. No cyanosis, rash, ulceration, clubbing, or edema. Radial and pedal pulses are 2/4 bilaterally. Neurological: No focal deficits. Strength and sensation are grossly intact. - Labs CBC & Chem 7: 07/06/21 05:43 07/06/21 05:43 Labs: Abnormal Lab Results - Last 24 Hours (Table) 07/05/21 07/05/21 07/05/21 Range/Units 08:10 09:23 10:11 APTT (22.0-30.0) sec Sodium 133 L (137-145) mmol/L Carbon Dioxide 18 L (22-30) mmol/L Glucose 155 H (74-99) mg/dL POC Glucose (mg/dL) 193 H 165 H (75-99) mg/dL 07/05/21 07/05/21 07/05/21 Range/Units 11:03 11:57 14:29 APTT >200.0 H* (22.0-30.0) sec Sodium (137-145) mmol/L Carbon Dioxide (22-30) mmol/L Glucose (74-99) mg/dL POC Glucose (mg/dL) 183 H 169 H (75-99) mg/dL 07/05/21 07/05/21 07/05/21 Range/Units 14:29 17:02 20:24 APTT (22.0-30.0) sec Sodium 133 L (137-145) mmol/L Carbon Dioxide 21 L (22-30) mmol/L Glucose 205 H (74-99) mg/dL POC Glucose (mg/dL) 182 H 269 H (75-99) mg/dL 07/05/21 07/06/21 07/06/21 Range/Units 21:24 05:43 05:43 APTT 99.5 H 48.4 H (22.0-30.0) sec Sodium 134 L (137-145) mmol/L Carbon Dioxide (22-30) mmol/L Glucose 157 H (74-99) mg/dL POC Glucose (mg/dL) (75-99) mg/dL 07/06/21 Range/Units 06:49 APTT (22.0-30.0) sec Sodium (137-145) mmol/L Carbon Dioxide (22-30) mmol/L Glucose (74-99) mg/dL POC Glucose (mg/dL) 151 H (75-99) mg/dL Microbiology - Last 24 Hours (Table) 07/04/21 22:20 Urine Culture - Final Urine,Voided Assessment and Plan Assessment: 1. Bilateral pulmonary embolism without any evidence of right heart strain 2. Right lower extremity DVT 3. Diabetic Ketoacidosis 4. History of hypertension 5. Recent history of Covid 19 infection March 2021 Plan: 1. Discontinue heparin drip, transitioned to Eliquis 10 mg twice a day 7 days then 5 mg twice a day 2. No evidence of right heart strain, no indication for EKOS 3. Lower extremity venous duplex ordered and reviewed Thank you for this consultation, the patient is cleared from vascular surgery for discharge. A follow-up as needed. The impression and plan of care has been dictated as directed. I performed a history and examination of this patient, discussed the same with the dictator. I agree with the dictator's note ,documented as a scribe. Any additional findings or plans will be noted.
[2021-07-06 12:38] VITALS: BP 140/69; PULSE 77; RESP 16; TEMP 98.2
--- NOTE | 2021-07-06 12:41 | P.PN ---
Subjective Progress Note Date: 07/06/21 Principal diagnosis: Acute diabetic ketoacidosis and subacute pulmonary embolism This is a 70-year-old female with known history of hypertension, diabetes, hypothyroidism, and she was diagnosed with COVID-19 infection/pneumonia in March of 2021. Patient is vaccinated, but not boosted. She received 2 shots but by the time she was about to receive her third shot, patient came down with COVID-19 pneumonia. This was around 2020. Since then, the patient has not been feeling well, has been feeling short of breath, weak, fatigued, and never back to her baseline. She was recently seen by her primary care physician, and he recommended antibiotics and a course of prednisone burst and taper. However her condition continued to deteriorate, seen in the ER last n ight, CT angiogram of the chest showed bilateral pulmonary embolism. Quite extensive but no right ventricular strain, patient was also noted to be in DKA with elevated blood sugar of 470 and an anion gap of 24. Patient was started on heparin, started on the DKA protocol, admitted to the ICU, and I was asked to see her on consultation. Patient never had any previous history of thromboembolic disease. She has no history of underlying malignancy. She does have family history of pulmonary embolism, father had pulmonary embolism at a relatively young age, exact etiology was not clear. Patient believes that her main trigger factor for thromboembolic disease was the fact she had COVID-19 pneumonia in March, and she has not been feeling the same since then. Reevaluated today on 07/06/2021, patient remains in the ICU, she is on room air, O2 sats is 94%, her anion gap has corrected completely. Patient remains on anticoagulation therapy, and she was seen by vascular surgery, she is not a candidate for thrombolytic therapy, patient is very comfortable, and the plan is to discharge the patient home today on Eliquis. She will be transitioned to oral anticoagulation therapy, and we'll clear the patient to be discharged home, and to resume her medications for her underlying diabetes. Objective - Vital Signs Vital signs: Vital Signs Temp 98.2 F 07/06/21 12:00 Pulse 77 07/06/21 12:00 Resp 16 07/06/21 12:00 BP 140/69 07/06/21 12:00 Pulse Ox 98 07/06/21 12:00 Intake & Output 07/05/21 07/06/21 07/06/21 18:59 06:59 18:59 Intake Total 1164.055 272.38 60 Output Total 250 1100 0 Balance 914.055 -827.62 60 Weight 84.822 kg Intake: IV 940 220 60 0.9 Normal Saline @ 20mL/ 140 220 60 hr D5-0.45% NaCl with KCl 800 20Meq/l 1,000 ml @ 150 mls/hr IV .[id number] EVIN Rx# :[id number] Intake, IV Titration 224.055 52.38 Amount Heparin Sod,Pork in 0.45% 224.055 52.38 NaCl 25,000 unit In 0.45 % NaCl 1 250ml.bag @ 18 UNITS/KG/HR 15.268 mls/hr IV .[id number] EVIN Rx#: [id number] Output: Urine 250 1100 0 Other: # Voids 1 1 - Exam Physical Exam: Revealed 70-year-old female in no distress. On room air. Head: Atraumatic, normocephalic. HEENT:[Neck is supple.] [No neck masses.] [No thyromegaly.] [No JVD.] Chest: [Clear throughout, no crackles, no rhonchi, no wheezes.] Cardiac Exam: [Normal S1 and S2, no S3 gallop, no murmur.] Abdomen: [Soft, nontender, no megaly, no rebound, no guarding, normal bowel sounds.] Extremities: [No clubbing, no edema, no cyanosis.] Neurological Exam: [No focal neurologic deficit.] Alert oriented 3. Psychiatric: Normal mood affect and normal mental status examination. Skin: No rashes. Musculoskeletal no deformities and no limitation in range of motion. - Labs CBC & Chem 7: 07/06/21 05:43 07/06/21 05:43 Labs: Abnormal Lab Results - Last 24 Hours (Table) 07/05/21 07/05/21 07/05/21 Range/Units 14:29 14:29 17:02 APTT >200.0 H* (22.0-30.0) sec Sodium 133 L (137-145) mmol/L Carbon Dioxide 21 L (22-30) mmol/L Glucose 205 H (74-99) mg/dL POC Glucose (mg/dL) 182 H (75-99) mg/dL 07/05/21 07/05/21 07/06/21 Range/Units 20:24 21:24 05:43 APTT 99.5 H (22.0-30.0) sec Sodium 134 L (137-145) mmol/L Carbon Dioxide (22-30) mmol/L Glucose 157 H (74-99) mg/dL POC Glucose (mg/dL) 269 H (75-99) mg/dL 07/06/21 07/06/21 07/06/21 Range/Units 05:43 06:49 11:26 APTT 48.4 H (22.0-30.0) sec Sodium (137-145) mmol/L Carbon Dioxide (22-30) mmol/L Glucose (74-99) mg/dL POC Glucose (mg/dL) 151 H 176 H (75-99) mg/dL Microbiology - Last 24 Hours (Table) 07/04/21 22:20 Urine Culture - Final Urine,Voided Assessment and Plan Assessment: Impression: Acute on chronic respiratory failure secondary to subacute pulmonary embolism most likely triggered by COVID-19 infection although the patient does have family history of thromboembolic disease and that is another contributing factor. History of COVID-19 pneumonia March 2021 Family history of thromboembolic disease. Acute diabetic ketoacidosis. History of hypothyroidism History of hypertension Recommendation: Transition patient to [facility] and discharge home today. Echocardiogram report was noted. Agree with discharge home today. And follow-up on outpatient basis Time with Patient: Less than 30
== END 2021-07-06 14:25 | disposition home or self-care (01) | DRG 175 ==
LOC: EC 18:13 → 3SCARD 22:34 → 2SICU 07-05 00:35
PROVIDERS: ADMIT Family Medicine; ATTEND Family Medicine
DX: I26.99 Other pulmonary embolism without acute cor pulmonale (principal); E11.10 Type 2 diabetes mellitus with ketoacidosis without coma; J96.20 Acute and chronic respiratory failure, unspecified whether with hypoxia or hypercapnia; E87.1 Hypo-osmolality and hyponatremia; E87.3 Alkalosis; I82.401 Acute embolism and thrombosis of unspecified deep veins of right lower extremity; I31.3 Pericardial effusion (noninflammatory); U09.9 Post COVID-19 condition, unspecified; Z20.822 Contact with and (suspected) exposure to COVID-19; T38.0X5A Adverse effect of glucocorticoids and synthetic analogues, initial encounter; E03.9 Hypothyroidism, unspecified; R07.89 Other chest pain; E87.8 Other disorders of electrolyte and fluid balance, not elsewhere classified; E86.0 Dehydration; D72.829 Elevated white blood cell count, unspecified; I10 Essential (primary) hypertension; E78.5 Hyperlipidemia, unspecified; K21.9 Gastro-esophageal reflux disease without esophagitis; G47.30 Sleep apnea, unspecified; L71.9 Rosacea, unspecified; F32.A Depression, unspecified; Z90.710 Acquired absence of both cervix and uterus; Z91.040 Latex allergy status; Z79.899 Other long term (current) drug therapy; Z79.890 Hormone replacement therapy; Z79.84 Long term (current) use of oral hypoglycemic drugs; Z79.52 Long term (current) use of systemic steroids; Z87.01 Personal history of pneumonia (recurrent); Z82.49 Family history of ischemic heart disease and other diseases of the circulatory system; X58.XXXA Exposure to other specified factors, initial encounter; I08.1 Rheumatic disorders of both mitral and tricuspid valves
CPT/HCPCS: 36415; 71046; 71275; 80048; 80051; 80053; 81001; 82009; 82565; 82947; 83605; 83880; 84100; 84484; 84520; 85025; 85027; 85379; 85610; 85730; 87086; 87635; 93005; 93306; 93970; 99291

== ENCOUNTER → 2021-12-19 | Outpatient (CLI) | payer MEDICARE ==
--- NOTE | 2021-12-19 17:19 | US ---
EXAMINATION TYPE: US gallbladder DATE OF EXAM: 12/19/2021 COMPARISON: NONE CLINICAL HISTORY: K56.3 GALLSTONES. abdominal pain EXAM MEASUREMENTS: Liver Length: 15.4 cm Gallbladder Wall: 0.2 cm CBD: 0.6 cm Right Kidney: 10.6 x 4.5 x 5.0 cm *technical limitations due to large amount of overlying bowel content Pancreas: visualized portions appear wnl Liver: limited evaluation, best visualized intercostally Gallbladder: stone = 1.0cm Evidence for sonographic River's sign: no CBD: upper limits of normal Right Kidney: no evidence of hydronephrosis IMPRESSION: 1. Cholelithiasis. 2. Examination has technical limitations.
== END | disposition home or self-care (01) ==
LOC: RADUSWWP 07:18
PROVIDERS: ATTEND Psychiatry & Neurology Psychiatry
DX: K80.20 Calculus of gallbladder without cholecystitis without obstruction (principal)
CPT/HCPCS: 76705

== ENCOUNTER → 2022-01-01 | Outpatient (CLI) | payer MEDICARE ==
--- NOTE | 2022-01-01 16:00 | CT ---
EXAMINATION TYPE: CT angio chest DATE OF EXAM: 01/01/2022 COMPARISON: 07/04/2021, when he is 22 HISTORY: 71-year-old female R06.02, follow-up shortness of breath and PE TECHNIQUE: Contiguous axial scanning of the chest performed with IV Contrast, patient injected with 5 5 mL of Isovue 370. Coronal/sagittal MIP reconstructions performed. CT DLP: 307.0 mGycm Automated exposure control for dose reduction was used. FINDINGS: Heart normal size without pericardial effusion. No flattening of the interventricular septum or reflu x of contrast into the hepatic veins. Aorta normal caliber with bovine configuration to the aortic arch. No thoracic lymphadenopathy by CT size criteria. Satisfactory opacification of the pulmonary artery system. There has been interval clearance of the p reviously seen bilateral pulmonary emboli. Focal pleural parenchymal opacity posterior right base continues to diminish in size. Suspect residua l pleural parenchymal scarring. No consolidation or pleural effusion. Possible underlying fatty infiltration of the liver. There is a gallstone noted measuring 9 mm. Splen ic artery calcifications. Bones: Mild anterior endplate spondylosis lower thoracic spine. IMPRESSION: 1. INTERVAL CLEARANCE OF THE PREVIOUSLY SEEN BILATERAL PULMONARY EMBOLI. 2. THE RIGHT BASILAR OPACITY CONTINUES TO DIMINISH. SUSPECT SOME RESIDUAL PLEURAL PARENCHYMAL SCARRIN G. CONSIDER AN ADDITIONAL ONE-YEAR FOLLOW-UP SURVEILLANCE EXAM. NO ACUTE PULMONARY PROCESS. 3. A 9 MM GALLSTONE. POSSIBLE UNDERLYING FATTY INFILTRATION OF THE LIVER.
== END | disposition home or self-care (01) ==
LOC: RADCTMAIN 14:13
PROVIDERS: ATTEND Internal Medicine
DX: I26.99 Other pulmonary embolism without acute cor pulmonale (principal); K80.20 Calculus of gallbladder without cholecystitis without obstruction
CPT/HCPCS: 82565; 84520; 71275; 36415; Q9967

== ENCOUNTER → 2022-03-27 | Outpatient (CLI) | payer MEDICARE | END | disposition home or self-care (01) | LOC: LABWHC1 15:48 | PROVIDERS: ATTEND Internal Medicine | DX: Z53.9 Procedure and treatment not carried out, unspecified reason (principal) ==

== ENCOUNTER → 2022-08-14 | Outpatient (CLI) | payer MEDICARE ==
--- NOTE | 2022-08-14 12:09 | CA ---
Stress Echo Report Vidya Berg Age: 72 Gender: F : 1950 Exam Date: 08/14/2022 10:27 Exam Location: [facility] Ht (in): 64 Wt (lb): 155 Ordering Physician: Daniele Cho DO ([email or web address]) Referring Physician: Daniele Cho DO ([email or web address]) Gasser Machine Operator: Bridget Scott RDCS Technologist Procedure CPT: Indication: Z01.810 pre op R06.02 sob ICD-9 Codes: Rhythm: Patient History: Diabetes mellitus, Family history Cardiac Medications: Medications in past 24 hours: Contrast: Stress Results Protocol: Brian Total dose(mL): Exercise Duration (min:sec): [address] Depression (mm): Angina Score: Mclaughlin Score: METS: 4.6 Resting HR: 95 Resting BP: 112 / 44 Peak HR: 145 Peak BP: 153 / 56 Max Predicted HR: 148 98 % Max Predicted HR Target HR: 126 Double Product: 35176 Stress Summary: BP Response: Normal Reason for Termination: Reached target heart rate or work-load Cardiac Symptoms: Test terminated after reaching target heart rate (85% max predicted) ECG Analysis Resting ECG: Stress ECG: Arrhythmia: Echo Analysis Resting Echo: Peak Echo Analysis: MEASUREMENTS (Male/Female) Normal Values CONCLUSIONS Average exercise tolerance Normal EKG and echo in response to exercise Dr. Felix Perez MD (Electronically Signed) Final Date: 14 August 2022 12:08
== END | disposition home or self-care (01) ==
LOC: RADNMMAIN 09:56
PROVIDERS: ATTEND Internal Medicine
DX: Z01.810 Encounter for preprocedural cardiovascular examination (principal); R06.02 Shortness of breath; E11.9 Type 2 diabetes mellitus without complications
CPT/HCPCS: 93351

== ENCOUNTER 2022-11-04 13:27 | Day surgery (SDC) | payer MEDICARE ==
[2022-10-30 12:33] VITALS: BMI 26.2
--- NOTE | 2022-11-04 12:39 | P.GSHP ---
History of Present Illness H&P Date: 11/04/22 CHIEF COMPLAINT: Cholecystitis HISTORY OF PRESENT ILLNESS: The patient is a 72-year-old female who presents with history of epigastric including right upper quadrant abdominal pain for over 6 months. She underwent diagnostic studies for her gallbladder. Separately her clinical picture was consistent with cholecystitis. Now she presents for surgical intervention. PAST MEDICAL HISTORY: Please see list PAST SURGICAL HISTORY: Please see list MEDICATIONS: Please see list ALLERGIES: Please see list SOCIAL HISTORY: Please see list FAMILY HISTORY: Please see list REVIEW OF ORGAN SYSTEMS: CONSTITUTIONAL: No reports of fevers or chills. HEENT: Denies any troubles with the vision or hearing. RESPIRATORY: No recent pneumonias. CARDIOVASCULAR: Denies chest pain or palpitations GI: No blood in stools or constipation. MUSCULOSKELETAL: Has occasional joint pain including back pain. GENITOURINARY: No active blood in urine. No urinary hesitancy. HEMATOLOGIC: No personal or family history of DVTs or pulmonary emboli. SKIN: No skin cancer. PHYSICAL EXAM: VITAL SIGNS: Afebrile vital signs stable GENERAL: Well-developed pleasant in no acute distress. HEENT: No scleral icterus. Extraocular movements grossly intact. Moist buccal mucosa. NECK: Supple without lymphadenopathy. CHEST: Unlabored respirations. Equal bilateral excursions. CARDIOVASCULAR: Regular rate regular rhythm rhythm. Distal 2+ pulses. ABDOMEN: Soft, nondistended. Tender along the epigastrium and right upper quadrant. MUSCULOSKELETAL: No clubbing, cyanosis, or edema. NEURO: Cranial nerves II to XII within normal limits. No focal or lateralizing signs. PSYCH: Alert and oriented to person, place and time. SKIN: Well-perfused good skin turgor. ASSESSMENT: 1. Epigastric and right upper quadrant abdominal pain 2. Chronic cholecystitis 3. Symptomatic gallstones. PLAN: 1. Will need a robotic cholecystectomy possible open. Benefits and risks were described. 2. Heparin for DVT prophylaxis 5000 units. 3. Antibiotic prophylaxis. 4. CBC and CMP on day of procedure 5. Non-narcotic pre and post op pain management reviewed. 6. Indocyanine green for biliary imaging. Past Medical History Past Medical History: Diabetes Mellitus, Deep Vein Thrombosis (DVT), GERD/Reflux, Hyperlipidemia, Hypertension, Pneumonia, Pulmonary Embolus (PE), Skin Disorder, Sleep Apnea/CPAP/BIPAP, Thyroid Disorder Additional Past Medical History / Comment(s): ALLERGIES. NO CPAP USE. ROSACEA. HX COVID 2 YEARS AGO, GOT BLOOD CLOTS IN EACH LUNG AND ONE IN RIGHT LEG. History of Any Multi-Drug Resistant Organisms: None Reported Past Surgical History: Section, Hysterectomy Additional Past Surgical History / Comment(s): Eye surgery. Past Anesthesia/Blood Transfusion Reactions: Motion Sickness Additional Past Anesthesia/Blood Transfusion Reaction / Comment(s): Had motion sickness with Covid and after for awhile, no problems since. Past Psychological History: Depression Smoking Status: Never smoker Past Alcohol Use History: None Reported Past Drug Use History: None Reported - Past Family History Father Family Medical History: Deep Vein Thrombosis (DVT) Medications and Allergies Home Medications Medication Instructions Recorded Confirmed Type FLUoxetine HCL [PROzac] 20 mg PO 1700 03/15/16 10/30/22 History Levothyroxine Sodium [Synthroid] 112 mcg PO 1330 03/15/16 10/30/22 History Lisinopril-Hctz 10-12.5 mg 1 tab PO 1700 03/15/16 10/30/22 History [Zestoretic 10-12.5] Albuterol Sulfate [Albuterol 2 puff PO Q6H PRN 07/04/21 10/30/22 History Sulfate Hfa] Dulaglutide [Trulicity] 3 mg SQ TH 07/04/21 10/30/22 History allopurinoL [Zyloprim] 100 mg PO DAILY 07/04/21 10/30/22 History Dapagliflozin Propanediol [Farxiga] 5 mg PO DAILY 10/30/22 10/30/22 History Ibuprofen [Motrin Ib] 400 mg PO Q8H PRN 10/30/22 10/30/22 History metFORMIN HCL 500 mg PO BID@1400,0000 10/30/22 10/30/22 History Allergies Allergy/AdvReac Type Severity Reaction Status Date / Time latex Allergy Rash/Hives Verified 10/30/22 12:07
[~2022-11-04 13:27] MED LIST: ACETAMINOPHEN TAB 500 MG TAB PO PRN; HEPARIN SODIUM,PORCINE/PF 5,000 UNIT/0.5 ML SYRINGE SQ PRN; INDOCYANINE GREEN 25 MG VIAL IV STA; ONDANSETRON 4 MG/2 ML VIAL IVP PRN
[2022-11-04 14:12] LABS: Glucose,Whole Blood 162 mg/dL (70-110)
[2022-11-04] MEDS ORDERED: LACTATED RINGERS 1,000 ML IV ONE ×3 (14:19→15:54)
[2022-11-04 14:24] LABS: Basophils % (A) 1 %; Eosinophils # (A) 0.2 k/uL (0-0.7); Eosinophils % (A) 3 %; HCT 45.5 % (34.0-46.0); Lymphocytes # (A) 1.5 k/uL (1.0-4.8); Lymphocytes % (A) 22 %; MCH 28.8 pg (25.0-35.0); MCHC 32.9 g/dL (31.0-37.0); MCV 87.7 fL (80.0-100.0); Monocytes # (A) 0.4 k/uL (0-1.0); Monocytes % (A) 6 %; Neutrophils # (A) 4.5 k/uL (1.3-7.7); Neutrophils % (A) 67 %; Platelet Count 324 k/uL (150-450); RBC 5.19 m/uL (3.80-5.40); RDW 13.4 % (11.5-15.5); WBC 6.7 k/uL (3.8-10.6)
[2022-11-04 14:28] VITALS: TEMP 97.8
[2022-11-04 14:39] LABS: ALT 26 U/L (4-34); AST 26 U/L (14-36); African American GFR (CKD) 83 (>60 ml/min/1.73 sqM); Albumin 4.5 g/dL (3.5-5.0); Alkaline Phosphatase 88 U/L (38-126); Anion Gap 10 mmol/L; Blood Urea Nitrogen 22 mg/dL (7-17); Calcium 9.6 mg/dL (8.4-10.2); Carbon Dioxide 26 mmol/L (22-30); Chloride 103 mmol/L (98-107); Glucose 169 mg/dL (74-99); Non-African American GFR(CKD) 72 (>60 ml/min/1.73 sqM); Potassium 4.8 mmol/L (3.5-5.1); Sodium 139 mmol/L (137-145); Total Bilirubin 0.6 mg/dL (0.2-1.3); Total Protein 7.4 g/dL (6.3-8.2)
[2022-11-04] MEDS ORDERED: diphenhydrAMINE 50 MG/ML 1 ML VIAL ONE (15:28)
[2022-11-04] MEDS ORDERED: NEOSTIGMINE 1 MG/ML 10 ML VIAL ONE (15:28)
[2022-11-04] MEDS ORDERED: ROCURONIUM 10 MG/ML (5 ML VIAL) IV ONE (15:28)
[2022-11-04] MEDS ORDERED: SUCCINYLCHOLINE CHLORIDE 200 MG/10 ML VIAL IV ONE (15:28)
[2022-11-04] MEDS ORDERED: GLYCOPYRROLATE 0.2 MG/ML 2 ML VIAL ONE (15:28)
[2022-11-04] MEDS ORDERED: LIDOCAINE 2% INJ 20 MG/ML (2 ML VIAL) ONE (15:28)
[2022-11-04] MEDS ORDERED: MIDAZOLAM 2 MG/2 ML VIAL ONE (15:28)
[2022-11-04] MEDS ORDERED: fentaNYL (PF) 50 MCG/ML 2 ML AMP ONE (15:28)
[2022-11-04] MEDS ORDERED: PROPOFOL 10 MG/ML 20 ML VIAL IV ONE (15:28)
[2022-11-04] MEDS ORDERED: ePHEDrine 50 MG/ML 1 ML VIAL ONE (15:28)
[2022-11-04] MEDS ORDERED: BUPIVACAINE (PF) 0.25% 30 ML VIAL SQ ONE (15:53)
[2022-11-04] MEDS ORDERED: KETOROLAC 15 MG/ML 1 ML VIAL IVP ONE (16:50)
--- NOTE | 2022-11-04 17:19 | P.OP ---
Date of Procedure: 11/04/22 Description of Procedure: SURGEON: SIOBHAN TINSLEY MD PREOPERATIVE DIAGNOSES: 1. Symptomatic gallstones 2. Right upper quadrant abdominal pain 3. Diabetes type 2, [id number] 4. Hypertensive heart disease 5. Hypothyroidism 6. Depressive disorder 7. Asthma 8. Diabetes type 2 with nephropathy POSTOPERATIVE DIAGNOSES: 1. Symptomatic gallstone 2. Right upper quadrant abdominal pain 3. Diabetes type 2, [id number] 4. Hypertensive heart disease 5. Hypothyroidism 6. Depressive disorder 7. Asthma 8. Diabetes type 2 with nephropathy 9. Chronic cholecystitis 10. Peritoneal adhesions, right upper quadrant OPERATION: 1. Robotic-assisted da Dimitrios Xi laparoscopic lysis of adhesions over 50% of the case 2. Robotic-assisted da Dimitrios Xi laparoscopic cholecystectomy, multiport with FIREFLY ESTIMATED BLOOD LOSS: 5 mL. SPECIMENS REMOVED: Gallbladder. COMPLICATIONS: None. OPERATIVE FINDINGS: 1. Moderate scarring over entire gallbladder with peritoneal adhesions, pericholecystic with features of chronic cholecystitis INDICATIONS: The patient is a 72-year-old female who presents with symptomatic gallstones. She reports chronic nausea including bilateral upper abdominal pain, right greater than left. Robotic assisted laparoscopic approach was described. Benefits and risks of the procedure including but not limited to bleeding, infection, injury to the biliary tree was described. Informed consent was obtained. DESCRIPTION OF PROCEDURE: Patient was brought to the operating room, placed in supine position. After general induction, the abdomen had been prepped and draped in standard sterile fashion. The robotic da Dimitrios XI system was primed. After a timeout protocol was performed, the patient had been prepped and draped in standard sterile fashion. The patient was injected with indocyanine green. A 5 mm 0 degrees laparoscopic trocar entry was performed along the left upper quadrant. The abdomen insufflated to 15 mmHg pressure which was tolerated well. Diagnostic laparoscopy demonstrated no injury to bowel viscera or mesentery. The liver surface was unremarkable. Next, two 8 mm robotic ports were placed along the right upper abdomen. The camera 8-mm port was maintained along the epigastrium. Another 8 mm port was placed along the left upper abdominal wall after exchanging the 5 mm port. Please note that the ports were placed at least 10 to 15 cm away from the target anatomy of the gallbladder. The robot was docked along the left lateral abdomen. The patient was repositioned in reverse Trendelenburg position. Using a grasper for arm 3, a grasper for arm 4, including hook cautery for arm 1, the robotic system was docked and primed as described. Instruments were interchanged by the payroll human resources assistant including hook cautery, Bovie cautery and clip appliers. I had sat at the console. The gallbladder was scarred with peritoneal adhesions. Lysis of adhesions was performed to free the gallbladder from the surrounding tissues. Next attention was brought to the infundibulum and cystic structures. The infundibulum and cystic duct were dissected free from surrounding tissues. The cystic duct was isolated. FIREFLY was used to identify the cystic artery and cystic structures. A critical view of safety was obtained. Large PLASTIC clips were used throughout the entire case. Using a clip director [employer], 2 clips were placed at the junction of the infundibulum and cystic duct. The cystic duct was divided between clips. Next, the cystic artery was similarly clipped and cauterized. Electro-Bovie cautery was used to remove the gallbladder from the hepatic fossa. Hemostasis was checked and found to be adequate. The robot was undocked. I re-scrubbed into the case. Using a 10 mm Endo Catch bag via the left upper quadrant incision, the specimen was removed from the abdominal cavity. All pneumoperitoneum instruments were evacuated from the abdominal cavity. The incisions were reapproximated using 4-0 Monocryl in an interrupted subcuticular fashion. Fascial defects were less than 8 mm in size. Please note along the trocar sites, local anesthetic was placed as a field block prior to insertion of all instruments. Liquid glue was applied to the skin. At the end of the procedure needle, sponge, and instrument count had been verified correct by the cardiovascular surgical tech. The patient was transferred to postanesthesia care unit in stable condition. Intraoperative films were shared with the patient's family. Plan - Discharge Summary Discharge Rx Participant: Yes New Discharge Prescriptions: New Simethicone [Gas-X] 125 mg PO AC-TID PRN #20 capsule PRN Reason: Pain Acetaminophen Tab [Tylenol Tab] 1,000 mg PO Q6HR PRN #30 tablet PRN Reason: Pain Continue FLUoxetine HCL [PROzac] 20 mg PO 1700 Levothyroxine Sodium [Synthroid] 112 mcg PO 1330 Lisinopril-Hctz 10-12.5 mg [Zestoretic 10-12.5] 1 tab PO 1700 allopurinoL [Zyloprim] 100 mg PO DAILY Albuterol Sulfate [Albuterol Sulfate Hfa] 2 puff PO Q6H PRN PRN Reason: Shortness Of Breath Dapagliflozin Propanediol [Farxiga] 5 mg PO DAILY Dulaglutide [Trulicity] 3 mg SQ TH metFORMIN HCL 500 mg PO BID@1400,0000 Ibuprofen [Motrin Ib] 400 mg PO Q8H PRN PRN Reason: Pain Discharge Medication List FLUoxetine HCL [PROzac] 20 mg PO 1700 03/15/16 [History] Levothyroxine Sodium [Synthroid] 112 mcg PO 1330 03/15/16 [History] Lisinopril-Hctz 10-12.5 mg [Zestoretic 10-12.5] 1 tab PO 1700 03/15/16 [History] Albuterol Sulfate [Albuterol Sulfate Hfa] 2 puff PO Q6H PRN 07/04/21 [History] Dulaglutide [Trulicity] 3 mg SQ TH 07/04/21 [History] allopurinoL [Zyloprim] 100 mg PO DAILY 07/04/21 [History] Dapagliflozin Propanediol [Farxiga] 5 mg PO DAILY 10/30/22 [History] Ibuprofen [Motrin Ib] 400 mg PO Q8H PRN 10/30/22 [History] metFORMIN HCL 500 mg PO BID@1400,0000 10/30/22 [History] Acetaminophen Tab [Tylenol Tab] 1,000 mg PO Q6HR PRN #30 tablet 11/04/22 [Rx] Simethicone [Gas-X] 125 mg PO AC-TID PRN #20 capsule 11/04/22 [Rx] Follow up Appointment(s)/Referral(s): Siobhan Tinsley MD [STAFF PHYSICIAN] - 11/12/22 (TELEHEALTH) Patient Instructions/Handouts: *[facility] - Managing Your Pain After Surgery Without Opioids, *[facility] - (Anesthesia) Discharge Instructions Outpatient Surgery, Low Fat Diet (DC), Laparoscopic Cholecystectomy (DC) Activity/Diet/Wound Care/Special Instructions: TELEHEALTH - DR WILL CALL YOU BETWEEN 8 am to 6 pm Recommend low-fat diet for the next 2 days. No lifting over 10 pounds in 2 weeks until November 18September shower. No bath tub soaks for two weeks until November 18 Diet as tolerated. Use Tylenol, simethicone and ibuprofen or Aleve scheduled for the next 24-48 hours for best pain relief. Use ice along incisions for today to prevent swelling. Discharge Disposition: HOME SELF-CARE
[2022-11-04 17:36] LABS: Glucose,Whole Blood 132 mg/dL (70-110)
[2022-11-04] MEDS ORDERED: ONDANSETRON 4 MG/2 ML VIAL ONE (18:14)
[2022-11-04] MEDS ORDERED: ONDANSETRON 4 MG/2 ML VIAL IVP ONE (18:17)
[2022-11-04] MEDS ORDERED: DEXAMETHASONE SOD PHOSPHATE 4 MG/ML 1 ML VIAL IV ONE (18:17)
[2022-11-04 18:21] VITALS: RESP 16
[2022-11-04] MEDS ORDERED: ACETAMINOPHEN TAB 500 MG TAB ONE (18:23)
[2022-11-04] MEDS ORDERED: ACETAMINOPHEN TAB 500 MG TAB PO ONE (18:26)
[2022-11-04 18:58] VITALS: BP 119/72; PULSE 82
== END 2022-11-04 19:20 | disposition home or self-care (01) ==
LOC: OR 13:27
PROVIDERS: ATTEND Surgery Plastic and Reconstructive Surgery
DX: K80.10 Calculus of gallbladder with chronic cholecystitis without obstruction (principal); I11.9 Hypertensive heart disease without heart failure; E03.9 Hypothyroidism, unspecified; F32.A Depression, unspecified; J45.909 Unspecified asthma, uncomplicated; E11.21 Type 2 diabetes mellitus with diabetic nephropathy; K66.0 Peritoneal adhesions (postprocedural) (postinfection); E78.5 Hyperlipidemia, unspecified; I10 Essential (primary) hypertension; J18.9 Pneumonia, unspecified organism; G47.33 Obstructive sleep apnea (adult) (pediatric); E07.9 Disorder of thyroid, unspecified; Z86.16 Personal history of COVID-19; Z86.718 Personal history of other venous thrombosis and embolism; Z86.711 Personal history of pulmonary embolism; Z90.710 Acquired absence of both cervix and uterus; Z98.891 History of uterine scar from previous surgery; Z79.84 Long term (current) use of oral hypoglycemic drugs; Z79.890 Hormone replacement therapy; Z79.51 Long term (current) use of inhaled steroids; Z79.899 Other long term (current) drug therapy; Z91.040 Latex allergy status
CPT/HCPCS: 47562; 88304; 80053; 85025; J2250; J0330; J1200; J1100; J2710; J0690; J2405; J3010; J1885; J2704; J1644; J2001